=== PATIENT | female | born 1965 | race Caucasian/White ===

== ENCOUNTER 2022-02-23 10:42 | Inpatient (IN) ==
--- NOTE | 2022-01-28 08:56 | PAT Medication Instructions ---
Medication Instructions Date of Service January 28, 2022 Home Medications Medication Instructions Recorded cyclobenzaprine 10 mg tablet 10 mg PO TID PRN muscle spasm #12 06/26/21 tabs albuterol sulfate 90 mcg/actuation aerosol inhaler 2 puff inhalation Q4 PRN alprazolam 1 mg tablet 1 mg PO BID anakinra 100 mg/0.67 mL subcutaneous syringe 100 mg subcut QAM aspirin 81 mg tablet,delayed release (Robb Low Dose Aspirin) 81 mg PO QAM cholecalciferol (vitamin D3) 50 mcg (2,000 unit) tablet (Vitamin D3) 1,000 unit PO QAM duloxetine 30 mg capsule,delayed release 30 mg PO QAM duloxetine 60 mg capsule,delayed release 60 mg PO QAM fexofenadine 180 mg tablet 180 mg PO DAILY PRN fluticasone 250 mcg-salmeterol 50 mcg/dose blistr powdr for inhalation (Advair Diskus) 1 inh inhalation BID PRN furosemide 20 mg tablet 20 mg PO QAM ipratropium 0.5 mg-albuterol 3 mg (2.5 mg base)/3 mL nebulization soln 3 ml inhalation QID PRN montelukast 10 mg tablet 10 mg PO QAM pantoprazole 40 mg tablet,delayed release 40 mg PO QAM tramadol 50 mg tablet 50 mg PO BID PRN calcium 600 mg capsule 600 mg PO BID metoprolol tartrate 25 mg tablet 25 mg PO BID multivitamin 1 cap PO BID risperidone 1 mg tablet (Risperdal) 1 mg PO HS cyclobenzaprine 10 mg tablet 10 mg PO TID PRN oxycodone-acetaminophen 5 mg-325 mg tablet (Percocet) 1 tab PO QID PRN ASK your prescriber and surgeon anakinra 100 mg/0.67 mL subcutaneous syringe 100 mg subcut QAM aspirin 81 mg tablet,delayed release (Robb Low Dose Aspirin) 81 mg PO QAM risperidone 1 mg tablet (Risperdal) 1 mg PO HS DO NOT take the morning of surgery cholecalciferol (vitamin D3) 50 mcg (2,000 unit) tablet (Vitamin D3) 1,000 unit PO QAM fexofenadine 180 mg tablet 180 mg PO DAILY PRN furosemide 20 mg tablet 20 mg PO QAM montelukast 10 mg tablet 10 mg PO QAM calcium 600 mg capsule 600 mg PO BID multivitamin 1 cap PO BID cyclobenzaprine 10 mg tablet 10 mg PO TID PRN Take morning of surgery With a small sip of water, OTHERWISE NOTHING TO EAT OR DRINK AFTER MIDNIGHT: albuterol sulfate 90 mcg/actuation aerosol inhaler 2 puff inhalation Q4 PRN(use if needed; please bring with you to hospital day of surgery if possible) alprazolam 1 mg tablet 1 mg PO BID duloxetine 30 mg capsule,delayed release 30 mg PO QAM duloxetine 60 mg capsule,delayed release 60 mg PO QAM fluticasone 250 mcg-salmeterol 50 mcg/dose blistr powdr for inhalation (Advair Diskus) 1 inh inhalation BID PRN(if needed) ipratropium 0.5 mg-albuterol 3 mg (2.5 mg base)/3 mL nebulization soln 3 ml inhalation QID PRN(if needed) pantoprazole 40 mg tablet,delayed release 40 mg PO QAM tramadol 50 mg tablet 50 mg PO BID PRN(if needed) metoprolol tartrate 25 mg tablet 25 mg PO BID oxycodone-acetaminophen 5 mg-325 mg tablet (Percocet) 1 tab PO QID PRN(if needed) Take evening before surgery albuterol sulfate 90 mcg/actuation aerosol inhaler 2 puff inhalation Q4 PRN(if needed) alprazolam 1 mg tablet 1 mg PO BID fluticasone 250 mcg-salmeterol 50 mcg/dose blistr powdr for inhalation (Advair Diskus) 1 inh inhalation BID PRN(if needed) ipratropium 0.5 mg-albuterol 3 mg (2.5 mg base)/3 mL nebulization soln 3 ml inhalation QID PRN(if needed) tramadol 50 mg tablet 50 mg PO BID PRN(if needed) calcium 600 mg capsule 600 mg PO BID metoprolol tartrate 25 mg tablet 25 mg PO BID multivitamin 1 cap PO BID cyclobenzaprine 10 mg tablet 10 mg PO TID PRN(if needed) oxycodone-acetaminophen 5 mg-325 mg tablet (Percocet) 1 tab PO QID PRN(if needed) Other Notes If you have any questions please call us at [phone] or [phone] or [phone] or [phone]
--- NOTE | 2022-02-03 09:49 | Anesthesiology Consultation ---
Date of Service February 03, 2022 Assessment & Plan (1) Encounter for pre-operative examination: - COVID screening: Per assessment on 02/03: No known COVID-19 positive contacts or current COVID-19 related symptoms. Travel screen- returned from [place] 01/14 (via car). Patient vaccinated. At surgeon discretion if preop Covid testing being done. - Check BSG AM DOS - Cardiology office visit (11/11/21): "..with regards to proposed spine surgery plan 3 months for now. She denies any signs or symptoms of angina, unstable arrhythmia, or congestive heart failure.. Nonischemic stress test in 2015, and tolerated Kandace-en-Y gastric bypass surgery performed 2020.. I am going to have her return for an EKG January.. [if] EKG reveals stable findings, anticipate proceeding to surgery without further cardiac testing.. estimated low risk of perioperative cardiac complication." EKG performed 01/06/22 was unremarkable. - Patient acceptable risk for surgery pending surgeon-ordered PCP preop evaluation (S, scheduled 02/11). Chart Review Chart Review: Patient seen in Pre Admission Testing Teaching & Discussion Pre-Anesthesia Teaching/Discussion Notes: Instructed NPO after midnight before surgery,except medications with 15 cc of water. Medication instructions provided according to the PAT guidelines. History Surgery Operation Date: 02/23/22 07:45 Proposed Procedures p L2-L3 Decompression and Fusion, L3-L5 Hardware Removal, Spinal Cord Monitoring - Sunny Salcedo, Height/Weight Height: 5 ft 6 in Weight: 129.8 kg Allergies Allergy/AdvReac Type Severity Reaction Status Date / Time adalimumab Allergy Unknown generalized Verified 01/28/22 07:59 swelling ketorolac Allergy Unknown Hives Verified 01/28/22 07:59 latex Allergy Unknown RASH Verified 01/28/22 07:59 nitrofurantoin Allergy Unknown Hives Verified 01/28/22 07:59 pregabalin Allergy Unknown mouth Verified 01/28/22 07:59 swelling/hives triprolidine Allergy Unknown Tachycardia Verified 01/28/22 07:59 Medications Home Medications Medication Instructions Recorded Confirmed Last Taken albuterol sulfate 90 mcg/actuation 2 puff inhalation Q4 PRN Shortness 04/18/19 01/28/22 04/02/21 aerosol inhaler Of Breath alprazolam 1 mg tablet 1 mg PO BID 04/18/19 01/28/22 04/09/21 06:00 anakinra 100 mg/0.67 mL 100 mg subcut QAM 04/18/19 01/28/22 04/08/21 09:00 subcutaneous syringe aspirin 81 mg tablet,delayed 81 mg PO QAM 04/18/19 01/28/22 04/08/21 09:00 release (Robb Low Dose Aspirin) cholecalciferol (vitamin D3) 50 1,000 unit PO QAM 04/18/19 01/28/22 04/08/21 09:00 mcg (2,000 unit) tablet (Vitamin D3) duloxetine 30 mg capsule,delayed 30 mg PO QAM 04/18/19 01/28/22 04/09/21 06:00 release duloxetine 60 mg capsule,delayed 60 mg PO QAM 04/18/19 01/28/22 04/09/21 06:00 release fexofenadine 180 mg tablet 180 mg PO DAILY PRN Allergy 04/18/19 01/28/22 04/08/21 08:00 Symptoms fluticasone 250 mcg-salmeterol 50 1 inh inhalation BID PRN upper 04/18/19 01/28/22 04/02/21 mcg/dose blistr powdr for respiratory infection inhalation (Advair Diskus) furosemide 20 mg tablet 20 mg PO QAM 04/18/19 01/28/22 04/08/21 08:00 ipratropium 0.5 mg-albuterol 3 mg 3 ml inhalation QID PRN Shortness 04/18/19 01/28/22 Unknown (2.5 mg base)/3 mL nebulization Of Breath soln montelukast 10 mg tablet 10 mg PO QAM 04/18/19 01/28/22 04/09/21 06:00 pantoprazole 40 mg tablet,delayed 40 mg PO QAM 04/18/19 01/28/22 04/09/21 06:00 release tramadol 50 mg tablet 50 mg PO BID PRN Pain 04/18/19 01/28/22 04/02/21 calcium 600 mg capsule 600 mg PO BID 04/03/21 01/28/22 04/08/21 20:00 metoprolol tartrate 25 mg tablet 25 mg PO BID 04/03/21 01/28/22 04/09/21 06:00 multivitamin 1 cap PO BID 04/03/21 01/28/22 04/09/21 06:00 risperidone 1 mg tablet (Risperdal) 1 mg PO HS 04/03/21 01/28/22 04/08/21 20:00 cyclobenzaprine 10 mg tablet 10 mg PO TID PRN muscle spasm #12 06/26/21 01/28/22 Unknown tabs oxycodone-acetaminophen 5 mg-325 1 tab PO QID PRN Pain 01/28/22 01/28/22 Unknown mg tablet (Percocet) Past Medical History Medical History Anxiety Asthma Bipolar disorder Chronic back pain Chronic sinusitis Degenerative disc disease Depression Diabetes mellitus, type 2 Diet controlled since gastric bypass Environmental and seasonal allergies Fibromyalgia GERD (gastroesophageal reflux disease) Hepatitis A Hx 1982 History of COVID-19 05/2021- symptoms resolved Hyperlipidemia Hypertension Migraines Morbid obesity with BMI of 60.0-69.9, adult MTHFR gene mutation Dx d/t family hx- no personal issues Non-alcoholic fatty liver disease Osteoarthritis Osteoporosis Panic disorder PVC's (premature ventricular contractions) Follows with Dr. Meredith Rheumatoid arthritis Schnitzler syndrome SIADH (syndrome of inappropriate ADH production) Sleep apnea CPAP (compliant) Spinal stenosis TMJ (temporomandibular joint disorder) Hx locking, no recent issues Exercise / Class Metabolic Activity III < 4 Walking/Shop/Light housework Past Family History Family History Father Family history of diabetes mellitus Other No family history of adverse response to anesthesia Past Surgical History Surgical History History of appendectomy History of carpal tunnel release of both wrists History of section x2 History of cholecystectomy History of colonoscopy with polypectomy History of dilatation and curettage x3 History of esophagogastroduodenoscopy (EGD) History of gastric bypass july 2020 History of lumbar spinal fusion x2--L4-5, S1 History of mandibular surgery History of sinus surgery History of tonsillectomy and adenoidectomy History of total abdominal hysterectomy and bilateral salpingo-oophorectomy History of wisdom tooth extraction Nausea and vomiting after administration of anesthetic agent with general anestheisa Status post trigger finger release right thumb Past Anesthesia History No Hx of Anesthesia Complications (except PONV) and No Family Hx of Anesthesia Complications History of PONV History of PONV (Improvement with reglan use) and Hx of Motion Sickness Social History Smoking Status: Former smoker tobacco type: cigarettes Do You Dip or Chew Tobacco: No Smoking End Date: Quit 2003 Hx Alcohol Use: No Alcohol type: wine alcohol intake frequency: holidays/special occasions only Hx Substance Use: No substance use type: does not use Review of Systems Occasional palpitations. Patient denies chest pain, shortness of breath, fever, chills, cough, wheezing. Physical Exam Vital Signs VITALS BP 112/65 P 55 TEMP 99.1 SP02 97%RA RESP 18 PHYSICAL Full cervical extension range of motion. Full TMJ range of motion. TMD 2.5 finger breaths Mallampati Score 1 Dentition: intact, several crowns Lungs: clear throughout to auscultation Cardiac: regular rate and rhythm, no murmurs noted Spine: normal Carotid arteries: negative bruit Extremities: no edema Lab Results Anesthesia Preop Results Results Anesthesia Widget: WBC 5.85 K/ul (4.8-10.8) 02/03/22 Hgb 14.2 g/dl (12.0-16.0) 02/03/22 Hct 43.4 % (34.1-44.9) 02/03/22 Plt 224 K/uL (130-400) 02/03/22 Na 139 mmol/L (136-145) 02/03/22 K 4.9 mmol/L (3.5-5.1) 02/03/22 Cl 103 mmol/L (98-107) 02/03/22 CO2 31 mmol/L (21-32) 02/03/22 BUN 21 mg/dl (6-23) 02/03/22 Creat 0.94 mg/dl (0.6-1.2) 02/03/22 Glucose Level 130 mg/dl (70-99(Fasting)) H 02/03/22 PT 10.7 Seconds (9.0-12.0) 02/03/22 PTT 25.7 Seconds (21.0-31.0) 02/03/22 INR 1.0 (0.9-1.1) 02/03/22 Urine Color Yellow 02/03/22 Urine Appearance Clear (Clear) 02/03/22 Urine pH 5.0 (4.5-7.5) 02/03/22 Urine Specific [place] 1.007 (1.000-1.030) 02/03/22 Urine Protein Negative (Negative) 02/03/22 Urine Glucose (UA) Negative (Negative) 02/03/22 Urine Ketones Negative (Negative) 02/03/22 Urine Blood Negative (Negative) 02/03/22 Urine Nitrite Negative (Negative) 02/03/22 Urine Bilirubin Negative (Negative) 02/03/22 Urine Urobilinogen Negative (Negative) 02/03/22 Urine Leukocyte Esterase Negative (Negative) 02/03/22 Blood Type A Positive 02/03/22 Antibody Screen NEGATIVE 02/03/22 Testing Electrocardiogram Date: 01/06/22 SB with PACs at 49bpm. Otherwise normal ECG. Chest X-Ray Date: 02/03/22 FINDINGS: PA and lateral chest radiographs are compared to study dated 03/20/2016. The cardiomediastinal silhouette is top normal for projection. The lungs appear hyperinflated. No airspace consolidation or pleural effusion is identified. There is no pneumothorax. The bony thorax appears intact. Degenerative change is seen throughout the thoracic spine. IMPRESSION: No active disease in the chest. Stress Test Date: 08/15/15 Type: DSE Nonischemic dobutamine stress echo. The stress ECG response was normal. EF 60 to 65%. Grade 2 diastolic dysfunction. No significant valvular disease. Mild concentric LVH. Mild LAD. 88% MPHR. COVID-19 Risk Screen Screening Information COVID-19 Screen Date: 02/03/22 Exposure 21 Days Family/Household +COVID Last 21 Days: No Exposure 10 Days Any COVID Exposure Last 10 Days: No Symptoms Last 10 Days Experienced COVID Sx Last 10 Days: No + COVID 0-90 Days COVID + in Last 0-90 Days: No
[~2022-02-23 10:42] MED LIST: ACETAMINOPHEN 500 MG TAB PO SCH; DEXAMETHASONE SOD INJ 4 MG/ML VIAL ONE; LIDOCAINE 2% MPF LOCAL 5 ML VIAL INFIL ONE; LR 15ML/HR IV SCH; MIDAZOLAM HCL 1 MG/ML 2ML VIAL ONE; ONDANSETRON INJ 2 MG/ML 2 ML VIAL ONE; PROPOFOL IV EMULSION 10 MG/ML 20 ML VIAL IV ONE; ROCURONIUM BROMIDE 10 MG/ML 5 ML VIAL IV ONE; fentaNYL citrate 100 MCG/2 ML VIAL ONE
[2022-02-23] MEDS ORDERED: ONDANSETRON INJ 2 MG/ML 2 ML VIAL IV PRN ×2 (11:25→17:05)
[2022-02-23] MEDS ORDERED: HYDROmorphone INJ 1 MG/ML SYRINGE IV PRN ×2 (11:25→17:05)
[2022-02-23] MEDS ORDERED: ePHEDrine sulfate 50 MG/ML AMP IV PRN (11:25)
[2022-02-23] MEDS ORDERED: fentaNYL citrate 100 MCG/2 ML VIAL IV PRN (11:25)
[2022-02-23] MEDS ORDERED: ATROPINE SULFATE 0.1 MG/ML 10ML SYR IV PRN (11:25)
[2022-02-23] MEDS ORDERED: PROMETHAZINE HCL 6.25 MG in SODIUM CHLORIDE 0.9% 50 ML IV PRN (11:25)
[2022-02-23] MEDS ORDERED: SCOPOLAMINE 1 MG TDSY TD ONE (11:29)
--- NOTE | 2022-02-23 11:37 | History & Physical Bridge Note ---
Date of Service February 23, 2022 History & Physical Bridge Note I have examined the patient, reviewed the History & Physical and in the interval since the performance of the History & Physical I have noted the following changes of clinical significance: no changes noted
--- NOTE | 2022-02-23 11:38 | History & Physical Report ---
Date of Service February 23, 2022 Assessment & Plan (1) Spinal stenosis, lumbar: Plan: L2-L3 decompression and fusion, L3-L5 hardware removal History of Present Illness Chief Complaint: Back and bilateral leg pain Primary Care Provider: Aubrey Mcmullen MD This a 48-year-old female known to me the presents with chronic persistent back and bilateral leg pain. Failing since course of nonoperative care is here for surgical intervention. Allergies Allergy/AdvReac Type Severity Reaction Status Date / Time adalimumab Allergy Unknown generalized Verified 02/23/22 10:55 swelling ketorolac Allergy Unknown Hives Verified 02/23/22 10:55 latex Allergy Unknown RASH Verified 02/23/22 10:55 nitrofurantoin Allergy Unknown Hives Verified 02/23/22 10:55 pregabalin Allergy Unknown mouth Verified 02/23/22 10:55 swelling/hives triprolidine Allergy Unknown Tachycardia Verified 02/23/22 10:55 Home Medications Medication Instructions Recorded Confirmed Type albuterol sulfate 90 mcg/actuation 2 puff inhalation Q4 PRN Shortness 04/18/19 02/23/22 History aerosol inhaler Of Breath alprazolam 1 mg tablet 1 mg PO BID 04/18/19 02/23/22 History anakinra 100 mg/0.67 mL 100 mg subcut QAM 04/18/19 02/23/22 History subcutaneous syringe aspirin 81 mg tablet,delayed 81 mg PO QAM 04/18/19 02/23/22 History release (Robb Low Dose Aspirin) cholecalciferol (vitamin D3) 50 1,000 unit PO QAM 04/18/19 02/23/22 History mcg (2,000 unit) tablet (Vitamin D3) duloxetine 30 mg capsule,delayed 30 mg PO QAM 04/18/19 02/23/22 History release duloxetine 60 mg capsule,delayed 60 mg PO QAM 04/18/19 02/23/22 History release fexofenadine 180 mg tablet 180 mg PO DAILY PRN Allergy 04/18/19 02/23/22 History Symptoms fluticasone 250 mcg-salmeterol 50 1 inh inhalation BID PRN upper 04/18/19 02/23/22 History mcg/dose blistr powdr for respiratory infection inhalation (Advair Diskus) furosemide 20 mg tablet 20 mg PO QAM 04/18/19 02/23/22 History ipratropium 0.5 mg-albuterol 3 mg 3 ml inhalation QID PRN Shortness 04/18/19 02/23/22 History (2.5 mg base)/3 mL nebulization Of Breath soln montelukast 10 mg tablet 10 mg PO QAM 04/18/19 02/23/22 History pantoprazole 40 mg tablet,delayed 40 mg PO QAM 04/18/19 02/23/22 History release tramadol 50 mg tablet 50 mg PO BID PRN Pain 04/18/19 02/23/22 History calcium 600 mg capsule 600 mg PO BID 04/03/21 02/23/22 History metoprolol tartrate 25 mg tablet 25 mg PO BID 04/03/21 02/23/22 History multivitamin 1 cap PO BID 04/03/21 02/23/22 History risperidone 1 mg tablet (Risperdal) 1 mg PO HS 04/03/21 02/23/22 History cyclobenzaprine 10 mg tablet 10 mg PO TID PRN muscle spasm #12 06/26/21 02/23/22 Rx tabs oxycodone-acetaminophen 5 mg-325 1 tab PO QID PRN Pain 01/28/22 02/23/22 History mg tablet (Percocet) Past Med/Surg History Medical History Anxiety Asthma Bipolar disorder Chronic back pain Chronic sinusitis Degenerative disc disease Depression Diabetes mellitus, type 2 Diet controlled since gastric bypass Environmental and seasonal allergies Fibromyalgia GERD (gastroesophageal reflux disease) Hepatitis A Hx 1981 History of COVID-19 05/2021- symptoms resolved Hyperlipidemia Hypertension Migraines Morbid obesity with BMI of 60.0-69.9, adult MTHFR gene mutation Dx d/t family hx- no personal issues Non-alcoholic fatty liver disease Osteoarthritis Osteoporosis Panic disorder PVC's (premature ventricular contractions) Follows with Dr. Meredith Rheumatoid arthritis Schnitzler syndrome SIADH (syndrome of inappropriate ADH production) Sleep apnea CPAP (compliant) Spinal stenosis TMJ (temporomandibular joint disorder) Hx locking, no recent issues Surgical History History of appendectomy History of carpal tunnel release of both wrists History of section x2 History of cholecystectomy History of colonoscopy with polypectomy History of dilatation and curettage x3 History of esophagogastroduodenoscopy (EGD) History of gastric bypass july 2020 History of lumbar spinal fusion x2--L4-5, S1 History of mandibular surgery History of sinus surgery History of tonsillectomy and adenoidectomy History of total abdominal hysterectomy and bilateral salpingo-oophorectomy History of wisdom tooth extraction Nausea and vomiting after administration of anesthetic agent with general anestheisa Status post trigger finger release right thumb Family History Father Family history of diabetes mellitus Other No family history of adverse response to anesthesia Social History Smoking Status: Former smoker Smoking End Date: Quit 2003; Second Hand Exposure: No; Do You Dip or Chew Tobacco: No; Tobacco Cessation Education Requested by Patient: No Hx Alcohol Use: No Hx Substance Use: No Preferred Language: Slovenian Communication Ability: Effective Hazardous Material Specialist Required: No Beliefs That Will Affect Care: None and Orthodox Orthodox Beliefs: HINDU Current Living Situation: Spouse Current Living Situation Comment: Lives with and daughter Other Information That Helps Us Care for You: No Feels Safe at Home: Yes Safety Concerns: Feels Safe At This Time Assistive Devices: Cane, CPAP, Glasses and Nebulizer Assistive Devices Comment: USES CANE OCCASIONALLY Physical Exam Physical Exam: Patient is alert and oriented Heart regular rhythm Lungs clear
[2022-02-23] MEDS ORDERED: BUPIVACAINE/EPINEPHRINE 0.25% 1:200,000 30 ML VIAL ONE (11:58)
[2022-02-23] MEDS ORDERED: ceFAZolin 330 MG/ML 1 GM VIAL ONE (11:59)
[2022-02-23] MEDS ORDERED: SUGAMMADEX SODIUM 200 MG/2 ML VIAL IV ONE (12:26)
[2022-02-23] MEDS ORDERED: FLOSEAL HEMOSTATIC MATRIX 10ML TOP ONE (13:01)
[2022-02-23] MEDS ORDERED: ONDANSETRON INJ 2 MG/ML 2 ML VIAL ONE (13:52)
[2022-02-23] MEDS ORDERED: ROCURONIUM BROMIDE 10 MG/ML 5 ML VIAL IV ONE ×3 (13:54)
--- NOTE | 2022-02-23 14:03 | Operative Report ---
Post Operative Report Pre & Post Diagnosis Operation Date: 02/23/22 12:35 Pre-Op Diagnosis: Lumbar spinal stenosis with neurogenic claudication Post-Op Diagnosis: Same I identified the patient and participated in the time-out.: Yes Procedure Operation Date: 02/23/22 12:35 Actual Procedures #1 removal of instrumentation L3-L4-L5. #2 exploration of fusion L3 L5. #3 lumbar decompression with bilateral medial facetectomies and foraminotomies L1- L2 L2-L3. #4 posterior spinal fusion L2-L3. #5 placement posterior instrumentation L2-L3. #6 interbody fusion L2-L3. #7 placement of Spira 12 x 26 mm cage at L2-L3. #8 placement of locally harvested morselized autograft in the posterior gutters. Benign placement of I factor combined with V toss in the interbody space and posterior lateral gutters. Surgeon Sunny Salcedo, DO Hosiery [employer] Marialuisa Campos Estimated Blood Loss 300 Findings See Below The patient is 5 foot 6 weighing over 129 kg with a BMI in excess of 46. The patient's body was did contribute to significant technical difficulty required deeper retractors longer instruments in order to perform her procedure. This had at least 50% increased operative time.. Specimens None Indications This is a 56-year-old female who presents above-mentioned diagnosis after failed extensive course of nonoperative care is here for surgical invention. Description of Procedure Patient was met with identified informed consent obtained. Patient was then taken to the operative suite underwent a patient placed in a prone position on a Emerson table top Erlin frame. Operative prominences well-padded eyes inspected to ensure no external pressure placed upon the. This point the lumbar spine was prepped and draped in normal sterile fashion. Sharp dissection with the assistance of bradycardia was performed down to and exposing the lamina and transverse processes of L2 and instrumentation at L3-L4-L5 bilaterally. Then proceeded move the hardware bilaterally explore the fusion mass noting it to be mature and intact. Then performed a complete laminectomy of L2 partial laminectomy L1 including bilateral medial facetectomies and foraminotomies addressing severe spinal stenosis. Pedicle screws were then placed in L2-L3 bilaterally with assistance of fluoroscopy the process rita placed. By way of a transfemoral approach on the right a complete discectomy of L to L3 was performed endplates curetted to subcortical bleeding bone and a 12 x 26 mm spiral cage with I factor tapped in position. The rods were then locked into final position bilaterally. The transverse processes of L2-L3 burred to subcortically bone. I factor model V toss and locally harvested morselized autograft placed in the posterior gutters. 15 round MAXIMILIANO inserted. The incision was then closed with 1 Vicryl the fascia 2-0 Vicryl subcutaneously and 4 Monocryl for final closure. Steri-Strip Steri-Strip placed. Patient waken taken to PACU in stable condition. Please note spinal cord monitoring was utilized at the procedure no changes noted. Lastly Marialuisa Campos was present at the entire surgery and while the patient positioning complex portions of the surgery and final skin closure. I attest to the content of the Intraoperative Record and any orders documented therein. Any exceptions are noted below.
[2022-02-23] MEDS ORDERED: SODIUM CHLORIDE 0.9% 50 ML BAG ONE (14:40)
[2022-02-23] MEDS ORDERED: PROMETHAZINE HCL INJ 25 MG/ML 1 ML VIAL ONE (14:41)
--- NOTE | 2022-02-23 14:54 | Fluoroscopy Report ---
INTRAOPERATIVE RADIOGRAPHS CLINICAL HISTORY: Lumbar spinal fusion surgery. Fluoroscopy time: 20 seconds. FINDINGS: 2 spot fluoroscopic views of the lumbar spine are presented. There is evidence of discectom y at L2-L3, L3-L4, and L4-L5. Interpedicular screws are present at L2-L3. The orthopedic hardware mariaelena ears intact. IMPRESSION: Intraoperative images from lumbar spinal fusion surgery as above. Electronically signed by: Deepak Conde M.D. 02/23/2022 2:53 PM
--- NOTE | 2022-02-23 14:58 | Anesthesiology Progress Note ---
Date of Service February 23, 2022 Anesthesia Post Procedure Vital Signs Vital Signs: Temp Pulse Resp BP Pulse Ox O2 Del Method 02/23/22 11:21 37 C 50 L 20 133/46 L 96 Room Air 02/23/22 11:21 Room Air Pain Intensity Right Thigh: Pain Intensity: 4 Transfer of Care Handoff Completed per policy Notes Mental Status: alert / awake / arousable and participated in evaluation Patient Amnestic to Procedure: Yes Nausea / Vomiting: adequately controlled Pain: adequately controlled Airway Patency, RR, SpO2: stable & adequate BP & HR: stable & adequate Hydration State: stable & adequate Anesthetic Complications: no major complications apparent and Pt Satisfied with anesthetic care
[2022-02-23] MEDS ORDERED: FEXOFENADINE HCL 180 MG TAB PO PRN (17:05)
[2022-02-23] MEDS ORDERED: bisacodyL 10 MG SUPP PR PRN (17:05)
[2022-02-23] MEDS ORDERED: METOCLOPRAMIDE HCL INJ 5 MG/ML 2 ML VIAL IV PRN (17:05)
[2022-02-23] MEDS ORDERED: LORazepam 0.5 MG TAB PO PRN (17:05)
[2022-02-23] MEDS ORDERED: hydrOXYzine HCl 25 MG TAB PO PRN (17:05)
[2022-02-23] MEDS ORDERED: ACETAMINOPHEN 500 MG TAB PO PRN (17:05)
[2022-02-23] MEDS ORDERED: DO NOT ADMINISTER FLU VACCINE PRN (17:05)
[2022-02-23] MEDS ORDERED: ACETAMINOPHEN 1,000 MG/100 ML VIAL IV PRN (17:05)
[2022-02-23] MEDS ORDERED: ALBUT/IPRATROP 3MG/0.5MG NEB 3 ML VIAL INH PRN (17:05)
[2022-02-23] MEDS ORDERED: ONDANSETRON 4 MG OD TAB PO PRN (17:05)
[2022-02-23] MEDS ORDERED: diphenhydrAMINE Capsule 25 MG CAP PO PRN (17:05)
[2022-02-23] MEDS ORDERED: LORazepam 0.5 MG in SYRINGE 0 ML IV PRN (17:05)
[2022-02-23] MEDS ORDERED: DO NOT ADMINISTER PNEUMOCOCCAL VACCINE PRN (17:05)
[2022-02-23] MEDS ORDERED: traMADol HCL 50 MG TABLET PO PRN (17:05)
[2022-02-23] MEDS ORDERED: HYDROmorphone INJ 0.5 MG/0.5 ML SYR IV PRN (17:05)
[2022-02-23] MEDS ORDERED: FAMOTIDINE 20 MG TAB PO PRN (17:05)
[2022-02-23] MEDS ORDERED: NALOXONE HCL 0.4 MG/1 ML VIAL/CARP IV PRN (17:05)
[2022-02-23] MEDS ORDERED: CYCLOBENZAPRINE HCL 10 MG TAB PO PRN (17:05)
[2022-02-23] MEDS ORDERED: PROMETHAZINE HCL 12.5 MG in SODIUM CHLORIDE 0.9% 50 ML IV PRN (17:05)
[2022-02-23] MEDS ORDERED: FLUTICASONE/SALMETEROL 250/50 (ADVAIR) 14 PUFF/1 INHALER INH PRN (17:05)
[2022-02-23] MEDS ORDERED: ALUMINUM/MAGNESIUM SUSP 30 ML UDC PO PRN (17:05)
[2022-02-23] MEDS ORDERED: ALBUTEROL HFA 8 GM INHALER INH PRN (17:05)
[2022-02-23] MEDS ORDERED: SOD PHOSPHATE/SOD BIPHOSPHATE ENEMA 132 ML BTL PR PRN (17:05)
[2022-02-23] MEDS: SODIUM CHLORIDE 0.9% 1000ML 1,000 ML IV SCH (17:29)
--- NOTE | 2022-02-23 18:39 | Hospitalist Consultation ---
Date of Consultation February 23, 2022 Assessment & Plan (1) Spinal stenosis, lumbar: - Pain management, bowel regimen and DVT ppx per the primary team - PT/OT consults, pt is planning on outpatient therapy - Follow am CBC to monitor for acute blood loss, last hgb was 14.2 on 02/03 - Will hold lasix and aspirin for at least 24 hours, can resume per day team (2) Morbid obesity with BMI of 45.0-49.9, adult: - BMI 46.2 - S/p gastric bypass surgery in July 2020, has lost 112 lbs. Prior to surgery weighed 399 lbs, and goal is to weigh 250 lbs. Diet and exercise encouraged and pt is hopeful that surgery will improve her pain control to promote ability to exercise. 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 Will order non-formulary medication and plans to bring this in from home, needs refridgerated (6) Moderate obstructive sleep apnea: - cpap HS, pt brought own mask from home DVT ppx: - teds, scds, holding aspirin for now, resume per day team CODE: Full code Dispo: From home, likely to remain in the hospital x 1-2 days Supervising Physician Co-Signing Physician Notes delayed entry date of service noted above Attending Addendum: care coordinated with RACHAEL Nichols please refer to her notes for full details, I agree with her notes patient seen and examined, records reviewed by myself as well on exam, patient seen sitting up in bed, comfortable, not in distress Has some mild discomfort over surgical site, but otherwise feels okay no chest pain, dyspnea, palpitations, dizziness From nausea or abdominal pain no other symptoms VS noted and reviewed oriented x 3, not in distress, speaks in sentences with no effort nor accessory muscle use normal rate, regular rhythm, no murmurs clear breath sounds bilaterally non distended, soft, nontender no bipedal edema, erythema, warmth no neuro deficits ASSESSMENT AND PLAN Status post lumbar spine surgery Stable overall Hold Lasix to prevent dehydration, hypotension Hold aspirin until okay with orthopedic surgery service Resume other usual medications other diagnoses and plan of care as per RACHAEL Nichols's notes Andrae Valdivia MD History of Present Illness Reason for Consultation: Medical management Requesting Physician: Dr. Salcedo Attending Physician: Sunny Salcedo, DO History of Present Illness This is a 56-year-old female with PMHx of asthma, morbid obesity with BMI of 46.2 status post 100 pounds of weight loss s/p bariatric surgery, previous history of DM type II with last A1c of 5, moderate JULES, MTHFR mutation, Schnitzler's syndrome, rheumatoid arthritis, GERD, osteoporosis and other medical issues listed below. Pt presented to hospital with spinal stenosis of the lumbar region for elective lumbar decompression fusion, L3-L5 hardware removal by Dr. Salcedo. Patient reports she is doing well, she has chronic right-sided leg paresthesias from many years ago from chronic morbid obesity. It has improved since losing over 112 pounds since July 2020 when she had gastric bypass surgery. Patient is no longer on medications for any diabetes as her A1c is 5. She had been taking Percocet prior to the surgery to help with pain control, patient reports she has 5 tablets left from her PCP. She anticipates doing PT/OT after discharge. 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 Allergies Allergy/AdvReac Type Severity Reaction Status Date / Time adalimumab Allergy Unknown generalized Verified 02/23/22 10:55 swelling ketorolac Allergy Unknown Hives Verified 02/23/22 10:55 latex Allergy Unknown RASH Verified 02/23/22 10:55 nitrofurantoin Allergy Unknown Hives Verified 02/23/22 10:55 pregabalin Allergy Unknown mouth Verified 02/23/22 10:55 swelling/hives triprolidine Allergy Unknown Tachycardia Verified 02/23/22 10:55 Home Medications Medication Instructions Recorded Confirmed Type albuterol sulfate 90 mcg/actuation 2 puff inhalation Q4 PRN Shortness 04/18/19 02/23/22 History aerosol inhaler Of Breath alprazolam 1 mg tablet 1 mg PO BID 04/18/19 02/23/22 History anakinra 100 mg/0.67 mL 100 mg subcut QAM 04/18/19 02/23/22 History subcutaneous syringe aspirin 81 mg tablet,delayed 81 mg PO QAM 04/18/19 02/23/22 History release (Robb Low Dose Aspirin) cholecalciferol (vitamin D3) 50 1,000 unit PO QAM 04/18/19 02/23/22 History mcg (2,000 unit) tablet (Vitamin D3) duloxetine 30 mg capsule,delayed 30 mg PO QAM 04/18/19 02/23/22 History release duloxetine 60 mg capsule,delayed 60 mg PO QAM 04/18/19 02/23/22 History release fexofenadine 180 mg tablet 180 mg PO DAILY PRN Allergy 04/18/19 02/23/22 History Symptoms fluticasone 250 mcg-salmeterol 50 1 inh inhalation BID PRN upper 04/18/19 02/23/22 History mcg/dose blistr powdr for respiratory infection inhalation (Advair Diskus) furosemide 20 mg tablet 20 mg PO QAM 04/18/19 02/23/22 History ipratropium 0.5 mg-albuterol 3 mg 3 ml inhalation QID PRN Shortness 04/18/19 02/23/22 History (2.5 mg base)/3 mL nebulization Of Breath soln montelukast 10 mg tablet 10 mg PO QAM 04/18/19 02/23/22 History pantoprazole 40 mg tablet,delayed 40 mg PO QAM 04/18/19 02/23/22 History release calcium 600 mg capsule 600 mg PO BID 04/03/21 02/23/22 History metoprolol tartrate 25 mg tablet 25 mg PO BID 04/03/21 02/23/22 History multivitamin 1 cap PO BID 04/03/21 02/23/22 History risperidone 1 mg tablet (Risperdal) 1 mg PO HS 04/03/21 02/23/22 History cyclobenzaprine 10 mg tablet 10 mg PO TID PRN muscle spasm #12 06/26/21 02/23/22 Rx tabs oxycodone-acetaminophen 5 mg-325 1 tab PO QID PRN Pain 01/28/22 02/23/22 History mg tablet (Percocet) oxycodone 5 mg tablet 5 mg PO Q6H PRN pain, severe #30 02/24/22 Rx tabs tramadol 50 mg tablet 50 mg PO Q6H PRN pain, moderate 02/24/22 Rx #30 tabs Patient History Medical History Anxiety Asthma Bipolar disorder Chronic back pain Chronic sinusitis Degenerative disc disease Depression Diabetes mellitus, type 2 Diet controlled since gastric bypass Environmental and seasonal allergies Fibromyalgia GERD (gastroesophageal reflux disease) Hepatitis A Hx 1982 History of COVID-19 05/2021- symptoms resolved Hyperlipidemia Hypertension Migraines Morbid obesity with BMI of 60.0-69.9, adult MTHFR gene mutation Dx d/t family hx- no personal issues Non-alcoholic fatty liver disease Osteoarthritis Osteoporosis Panic disorder PVC's (premature ventricular contractions) Follows with Dr. Meredith Rheumatoid arthritis Schnitzler syndrome SIADH (syndrome of inappropriate ADH production) Sleep apnea CPAP (compliant) Spinal stenosis TMJ (temporomandibular joint disorder) Hx locking, no recent issues Surgical History History of appendectomy History of carpal tunnel release of both wrists History of section x2 History of cholecystectomy History of colonoscopy with polypectomy History of dilatation and curettage x3 History of esophagogastroduodenoscopy (EGD) History of gastric bypass july 2020 History of lumbar spinal fusion x2--L4-5, S1 History of mandibular surgery History of sinus surgery History of tonsillectomy and adenoidectomy History of total abdominal hysterectomy and bilateral salpingo-oophorectomy History of wisdom tooth extraction Nausea and vomiting after administration of anesthetic agent with general anestheisa Status post trigger finger release right thumb Family History Father Family history of diabetes mellitus Other No family history of adverse response to anesthesia Social History Smoking Status: Former smoker Smoking End Date: Quit 2003; Second Hand Exposure: No; Do You Dip or Chew Tobacco: No; Tobacco Cessation Education Requested by Patient: No Hx Alcohol Use: No Hx Substance Use: No Preferred Language: Ethiopian Communication Ability: Effective Cart Pusher Required: No Beliefs That Will Affect Care: None and Taoist Taoist Beliefs: QUAKER Current Living Situation: Spouse Current Living Situation Comment: Lives with and daughter Other Information That Helps Us Care for You: No Feels Safe at Home: Yes Safety Concerns: Feels Safe At This Time Assistive Devices: None Assistive Devices Comment: USES CANE OCCASIONALLY Review of Systems Review of Systems: Constitutional: No fever, sweats or chills Eyes: No diplopia, no worsening or blurred vision ENT: normal hearing, no trouble swallowing Respiratory: No cough, sputum, dyspnea at rest or on exertion Cardiovascular: No chest pain, tightness or palpitations Abdomen: No pain, nausea, vomiting, diarrhea or constipation Musculoskeletal: No joint pain, calf pain, swelling Neurologic: No weakness, + chronic right sided lower extremity paresthesias, otherwise no numbness/tingling, or balance problems Psychiatric: No anxiety or depression Skin: No rash or itch Physical Exam Physical Exam: General: awake, alert, no apparent distress, morbidly obese with BMI 46.2 Head: Normocephalic, atraumatic ENT: PERRL, EOMI, no pharyngeal exudate, mucous membranes moist Chest: Clear to auscultation, on room air, no adventitious breath sounds Cardiac: Regular rate and rhythm, no murmur, no JVD, normal peripheral pulses, good capillary refill Abdominal: NABS x 4 quadrants, soft, nondistended, nontender to palpation, no rebound or guarding Back: MAXIMILIANO drain draining bloody serosanguineous fluid Extremities: Normal inspection, no peripheral edema or erythema, calfs nontender to palpation Psych: Normal mood and affect Neuro: AAO x 3, strength intact bilaterally and rated 5/5, no motor deficits, speech is clear, + chronic peripheral sensory deficits in the RLE with decreased sensation which is chronic. Results & Data Results & Data ([facility]) Vital Signs (Past 12 Hours) Vital Signs Temp Pulse Resp BP Pulse Ox O2 Del Method O2 Flow Rate 02/23/22 17:30 Room Air 02/23/22 15:20 36.7 C 79 15 127/73 96 Room Air 02/23/22 14:50 75 18 128/72 97 Oxymask 3 02/23/22 14:40 75 13 120/74 100 Oxymask 4 02/23/22 16:30 36.7 C 66 19 122/76 97 Oxymask 2 02/23/22 16:00 36.7 C 66 21 122/76 97 Room Air 02/23/22 15:30 36.7 C 74 22 115/70 93 Room Air 02/23/22 15:10 70 19 122/75 99 Oxymask 3 02/23/22 15:00 74 18 132/74 98 Oxymask 3 02/23/22 14:30 79 16 127/81 100 Oxymask 4 02/23/22 14:20 36.5 C 89 16 123/79 100 Oxymask 5 02/23/22 11:21 37 C 50 L 20 133/46 L 96 Room Air 02/23/22 11:21 Room Air
[2022-02-23] MEDS: CLINDAMYCIN/D5W 600 MG/50 ML BAG IV SCH (20:21)
[2022-02-23] MEDS ORDERED: NON-FORMULARY MEDICATION (Calcium 600 mg Capsule) PO SCH (21:00)
[2022-02-23] MEDS: DOCUSATE SODIUM/SENNA 50/8.6MG TAB PO SCH (21:07)
[2022-02-23] MEDS: risperiDONE 1 MG TABLET PO SCH (21:07)
[2022-02-23] MEDS: METOPROLOL TARTRATE 25 MG TAB PO SCH (21:08)
[2022-02-23] MEDS: MULTIVITAMIN TAB PO SCH (21:08)
[2022-02-23] MEDS: ALPRAZolam 0.5 MG TABLET PO SCH (21:09)
[2022-02-23] MEDS: ALLERGY Noted to ORDERED Medication SCH (23:02)
[2022-02-24] MEDS: oxyCODONE HCL IR 5 MG TAB (IMMEDIATE RELEASE) PO PRN ×5 (00:01→21:58)
[2022-02-24] MEDS: SODIUM CHLORIDE 0.9% 1000ML 1,000 ML IV SCH ×2 (00:02→06:19)
[2022-02-24] MEDS: CLINDAMYCIN/D5W 600 MG/50 ML BAG IV SCH (03:49)
[2022-02-24] MEDS: POLYETHYLENE (MIRALAX) 17 GM PACK PO SCH ×3 (05:40→16:52)
[2022-02-24] MEDS: ALLERGY Noted to ORDERED Medication SCH ×6 (07:15→16:41)
[2022-02-24] MEDS: DULoxetine HCL 60 MG CAP PO SCH (08:40)
[2022-02-24] MEDS: CHOLECALCIFEROL 1,000 UNITS 25 MCG TAB PO SCH (08:40)
[2022-02-24] MEDS: MONTELUKAST SODIUM 10 MG TABLET PO SCH (08:40)
[2022-02-24] MEDS: MULTIVITAMIN TAB PO SCH ×2 (08:40→20:58)
[2022-02-24] MEDS: METOPROLOL TARTRATE 25 MG TAB PO SCH ×2 (08:40→20:58)
[2022-02-24] MEDS: FLUTICASONE/VILANTEROL 200/25MCG 14 PUFFS/INHALER INH SCH (08:40)
[2022-02-24] MEDS: DULoxetine HCL 30 MG CAP PO SCH (08:40)
[2022-02-24] MEDS: PANTOprazole 40 MG TAB PO SCH (08:40)
[2022-02-24] MEDS: ALPRAZolam 0.5 MG TABLET PO SCH ×2 (08:47→20:58)
[2022-02-24] MEDS ORDERED: ANAKINRA SQ SCH (09:00)
[2022-02-24] MEDS ORDERED: ASPIRIN 81 MG ECTAB PO SCH (09:00)
[2022-02-24] MEDS ORDERED: FUROSEMIDE 20 MG TAB PO SCH (09:00)
[2022-02-24 09:01] LABS: Basophils # (auto) 0.04 K/uL (0-0.2); Basophils % (auto) 0.5 %; Eosinophils # (auto) 0.21 K/uL (0-0.50); Eosinophils % (auto) 2.8 %; Hematocrit (blood only) 35.8 % (34.1-44.9); Hemoglobin 11.8 g/dl (12.0-16.0); Immature Granulocytes # (auto) 0.03 K/uL (0.00-0.02); Immature Granulocytes % (auto) 0.4 %; Lymphocytes % (auto) 30.5 %; Mean Corpuscular Hemoglobin 30.1 pg (25.0-34.0); Mean Corpuscular Volume 91.3 fL (80.0-100.0); Monocytes # (auto) 0.86 K/uL (0.24-0.82); Monocytes % (auto) 11.4 %; Neutrophils # (auto) 4.11 K/uL (1.4-6.5); Neutrophils % (auto) 54.4 %; Platelet Count 181 K/uL (130-400); RDW Coefficient of Variation 12.5 % (11.5-14.5); RDW Standard Deviation 41.3 fL (36.4-46.3); Red Blood Count 3.92 M/uL (3.93-5.22); White Blood Count 7.55 K/ul (4.8-10.8)
[2022-02-24 09:33] LABS: BUN Creatinine Ratio 18.9 (10-20); Calcium 8.6 mg/dl (8.5-10.1); Creatinine Clr Calc Pharmacy 114.5 ml/min; Est GFR (African American) 103.5 ml/min; Est GFR (Non-African American) 89.3 ml/min; Potassium 4.1 mmol/L (3.5-5.1)
[2022-02-24] MEDS: ANAKINRA SC SCH (12:28)
[2022-02-24] MEDS: MAGNESIUM HYDROXIDE SUSP 30 ML UDC PO PRN (13:57)
--- NOTE | 2022-02-24 18:22 | Hospitalist Progress Note ---
Date of Service February 24, 2022 Assessment & Plan (1) Spinal stenosis, lumbar: Plan: (1) Spinal stenosis, lumbar: Status post lumbar spine surgery -Stable overall -Lasix on hold to prevent hypotension, dehydration Aspirin on hold till okay with surgery service -Hemoglobin 11.8 Monitor closely Transfuse if hemoglobin less than 7 (2) Morbid obesity with BMI of 45.0-49.9, adult: - BMI 46.2 - S/p gastric bypass surgery in July 2020 (3) DM type 2 (diabetes mellitus, type 2): -A1c 5.0 -Not on any medications -BSG 109 (4) Asthma, allergic: - Continue Advair inh, ipratropium-albuterol -Respiratory status stable (5) Schnitzler syndrome: -Continue anakinra 100 mg SQ daily for such. Will order non-formulary medication and plans to bring this in from home, needs refridgerated (6) Moderate obstructive sleep apnea: - cpap HS, pt brought own mask from home DVT ppx: - teds, scds, holding aspirin for now, resume per day team CODE: Full code Thank you for this consultation. We will follow the patient with you during their hospital stay. You can reach a [facility] via pager @ [phone]. Admission and Anticipated Discharge Date Admission Date: February 23, 2022 Subjective Follow-up for lumbar spine surgery, etc. Seen resting in bed, sitting up, not in distress, comfortable States that she is having increased level of pain on her surgical site today Denies weakness or numbness of lower extremity, but ambulating in the room okay so far No other symptoms Review of Systems Review of Systems: all noted and negative except for above Physical Exam Physical Exam: General- oriented x 3, not in distress, speaks in sentences with no effort or accessory muscle use Eyes- anicteric Neck- no JVD Lungs- clear breath sounds bilaterally, no crackles or wheezing Heart- normal rate, regular rhythm; no murmurs Abdomen- normal bowel sounds, nondistended, soft, nontender Extremities- no pretibial edema, no calf tenderness Back-dressing in place, no bleeding or discharge, MAXIMILIANO drain in place with moderate serosanguineous output Neuro- alert, oriented x 3; no gross focal neurologic deficits Skin- warm & dry Results & Data Results & Data ([facility]) Vital Signs (Past 12 Hours) Vital Signs Temp Pulse Resp BP BP Pulse Ox O2 Del Method 02/24/22 14:56 37 C 72 18 107/64 95 Room Air 02/24/22 11:44 36.9 C 78 18 103/62 95 Room Air 02/24/22 07:47 37 C 64 18 105/68 94 Room Air all noted and reviewed including below
[2022-02-24] MEDS ORDERED: LORazepam 0.5 mg IV INJ IV PRN (19:09)
[2022-02-24] MEDS: risperiDONE 1 MG TABLET PO SCH (20:58)
[2022-02-24] MEDS: DOCUSATE SODIUM/SENNA 50/8.6MG TAB PO SCH (20:58)
[2022-02-25] MEDS: ALLERGY Noted to ORDERED Medication SCH ×3 (00:26→16:11)
[2022-02-25] MEDS: POLYETHYLENE (MIRALAX) 17 GM PACK PO SCH ×4 (00:31→18:17)
[2022-02-25] MEDS: oxyCODONE HCL IR 5 MG TAB (IMMEDIATE RELEASE) PO PRN ×4 (05:54→22:42)
[2022-02-25] MEDS: ALPRAZolam 0.5 MG TABLET PO SCH ×2 (08:07→20:05)
[2022-02-25] MEDS: ANAKINRA SC SCH (08:08)
[2022-02-25] MEDS: DULoxetine HCL 60 MG CAP PO SCH (08:08)
[2022-02-25] MEDS: CHOLECALCIFEROL 1,000 UNITS 25 MCG TAB PO SCH (08:08)
[2022-02-25] MEDS: MULTIVITAMIN TAB PO SCH ×2 (08:08→20:06)
[2022-02-25] MEDS: DULoxetine HCL 30 MG CAP PO SCH (08:08)
[2022-02-25] MEDS: PANTOprazole 40 MG TAB PO SCH (08:08)
[2022-02-25] MEDS: MONTELUKAST SODIUM 10 MG TABLET PO SCH (08:08)
[2022-02-25] MEDS: FLUTICASONE/VILANTEROL 200/25MCG 14 PUFFS/INHALER INH SCH (08:08)
[2022-02-25] MEDS: METOPROLOL TARTRATE 25 MG TAB PO SCH ×2 (08:10→20:06)
--- NOTE | 2022-02-25 08:31 | Orthopedic Progress Note ---
Date of Service February 25, 2022 Assessment & Plan (1) Spinal stenosis, lumbar: Plan: Patient is postop day 2 status post hardware removal L3-5, decompression and fusion L2-3. We will continue physical therapy today. Continue pain control. DVT prophylaxis is in the form of teds and SCDs. Continue with aggressive bowel regimen. Maintain MAXIMILIANO drain. Anticipate discharge home tomorrow Admission and Anticipated Discharge Date Admission Date: February 23, 2022 Fela Knutson is postoperative day 2 status post hardware removal L3-5, decompression and fusion L2-3. She is doing well. Still has numbness in the right anterior thigh which is unchanged. Pain is controlled. MAXIMILIANO drain output last shift was 90 cc. Yesterday in physical therapy ambling roughly 35 feet. She is passing flatus but no bowel movement. Review of Systems Review of Systems: All systems reviewed & are unremarkable except as noted in HPI & below Physical Exam Physical Exam: Alert and oriented x3 Lying in bed in no acute distress Lumbar dressing is clean dry intact with functioning MAXIMILIANO drain 5 5 bilateral lower extremity strength Calf soft and nontender bilaterally Results & Data ([facility]) Vital Signs (Past 12 Hours) Vital Signs Temp Pulse Resp BP Pulse Ox O2 Del Method FiO2 02/25/22 07:15 37.2 C 58 L 18 108/71 94 Room Air 02/25/22 04:00 36.7 C 64 16 118/64 96 Room Air 02/25/22 02:46 18 02/24/22 22:50 18
--- NOTE | 2022-02-25 13:09 | Hospitalist Progress Note ---
Date of Service February 25, 2022 Assessment & Plan (1) Spinal stenosis, lumbar: Plan: (1) Spinal stenosis, lumbar: Status post lumbar spine surgery -Stable overall Aspirin on hold till okay with surgery service -Hemoglobin 11.8; no signs and symptoms of active bleeding. (2) Morbid obesity with BMI of 45.0-49.9, adult: - BMI 46.2 - S/p gastric bypass surgery in July 2020 (3) DM type 2 (diabetes mellitus, type 2): -A1c 5.0 -Not on any medications -BSG 109 (4) Asthma, allergic: - Continue Advair inh, ipratropium-albuterol -Respiratory status stable (5) Schnitzler syndrome: -Continue anakinra 100 mg SQ daily for such. Will order non-formulary medicat ion and plans to bring this in from home, needs refridgerated (6) Moderate obstructive sleep apnea: - cpap HS, pt brought own mask from home DVT ppx: - teds, scds, holding aspirin for now, resume as per Orthopedics CODE: Full code Thank you for this consultation. We will follow the patient with you during their hospital stay. Admission and Anticipated Discharge Date Admission Date: February 23, 2022 Subjective Patient seen and examined at bedside. She is comfortable lying in the bed; not in any distress. She is passing gas but has not had any bowel movement. No complaint of fever, chills, chest pain, palpitation, shortness of breath or urinary symptoms. Review of Systems Review of Systems: All systems reviewed & are unremarkable except as noted in Subjective Physical Exam Physical Exam: General- oriented x 3, not in distress, speaks in sentences with no effort or accessory muscle use Eyes- anicteric Neck- no JVD Lungs- clear breath sounds bilaterally, no crackles or wheezing Heart- normal rate, regular rhythm; no murmurs Abdomen- normal bowel sounds, nondistended, soft, nontender Extremities- no pretibial edema, no calf tenderness Back-dressing in place, no bleeding or discharge, MAXIMILIANO drain in place with moderate serosanguineous output Neuro- alert, oriented x 3; no gross focal neurologic deficits Skin- warm & dry Results & Data Results & Data ([facility]) Vital Signs (Past 12 Hours) Vital Signs Temp Pulse Resp BP Pulse Ox O2 Del Method FiO2 02/25/22 07:15 37.2 C 58 L 18 108/71 94 Room Air 02/25/22 04:00 36.7 C 64 16 118/64 96 Room Air 02/25/22 02:46 18 21 Laboratory Results Laboratory Results WBC 7.55 K/ul (4.8-10.8) 02/24/22 08:48 RBC 3.92 M/uL (3.93-5.22) L 02/24/22 08:48 Hgb 11.8 g/dl (12.0-16.0) L 02/24/22 08:48 Hct 35.8 % (34.1-44.9) 02/24/22 08:48 MCV 91.3 fL (80.0-100.0) 02/24/22 08:48 MCH 30.1 pg (25.0-34.0) 02/24/22 08:48 MCHC 33.0 g/dL (32.0-36.0) 02/24/22 08:48 RDW Std Deviation 41.3 fL (36.4-46.3) 02/24/22 08:48 RDW Coeff of Don 12.5 % (11.5-14.5) 02/24/22 08:48 Plt Count 181 K/uL (130-400) 02/24/22 08:48 MPV 11.0 fL (9.4-12.3) 02/24/22 08:48 Immature Gran % (Auto) 0.4 % 02/24/22 08:48 Neut % (Auto) 54.4 % 02/24/22 08:48 Lymph % (Auto) 30.5 % 02/24/22 08:48 [place] % (Auto) 11.4 % 02/24/22 08:48 Eos % (Auto) 2.8 % 02/24/22 08:48 Baso % (Auto) 0.5 % 02/24/22 08:48 Neut # (Auto) 4.11 K/uL (1.4-6.5) 02/24/22 08:48 Lymph # (Auto) 2.30 K/uL (1.2-3.4) 02/24/22 08:48 [place] # (Auto) 0.86 K/uL (0.24-0.82) H 02/24/22 08:48 Eos # (Auto) 0.21 K/uL (0-0.50) 02/24/22 08:48 Baso # (Auto) 0.04 K/uL (0-0.2) 02/24/22 08:48 Immature Gran # (Auto) 0.03 K/uL (0.00-0.02) H 02/24/22 08:48 Sodium 138 mmol/L (136-145) 02/24/22 08:48 Potassium 4.1 mmol/L (3.5-5.1) 02/24/22 08:48 Chloride 105 mmol/L (98-107) 02/24/22 08:48 Carbon Dioxide 31 mmol/L (21-32) 02/24/22 08:48 Anion Gap 2 (3-11) L 02/24/22 08:48 BUN 14 mg/dl (6-23) 02/24/22 08:48 Creatinine 0.74 mg/dl (0.6-1.2) 02/24/22 08:48 Est Cr Clr Drug Dosing 114.5 ml/min 02/24/22 08:48 Est GFR ( Amer) 103.5 ml/min 02/24/22 08:48 Est GFR (Non-Af Amer) 89.3 ml/min 02/24/22 08:48 BUN/Creatinine Ratio 18.9 (10-20) 02/24/22 08:48 Glucose 92 mg/dl (70-99(Fasting)) 02/24/22 08:48 POC Glucose 109 mg/dl (70-99) H 02/24/22 11:51 Calcium 8.6 mg/dl (8.5-10.1) 02/24/22 08:48 SARS-CoV-2, RNA, NAAT NEGATIVE (NEGATIVE) 02/23/22 10:50 Impressions Lumbar Spine X-Ray 02/23/22 12:35 INTRAOPERATIVE RADIOGRAPHS CLINICAL HISTORY: Lumbar spinal fusion surgery. Fluoroscopy time: 20 seconds. FINDINGS: 2 spot fluoroscopic views of the lumbar spine are presented. There is evidence of discectomy at L2-L3, L3-L4, and L4-L5. Interpedicular screws are present at L2-L3. The orthopedic hardware appears intact. IMPRESSION: Intraoperative images from lumbar spinal fusion surgery as above. Electronically signed by: Deepak Conde M.D. 02/23/2022 2:53 PM
[2022-02-25] MEDS: MAGNESIUM HYDROXIDE SUSP 30 ML UDC PO PRN (13:14)
[2022-02-25] MEDS: DOCUSATE SODIUM/SENNA 50/8.6MG TAB PO SCH (20:05)
[2022-02-25] MEDS: risperiDONE 1 MG TABLET PO SCH (20:06)
[2022-02-26] MEDS: ALLERGY Noted to ORDERED Medication SCH ×2 (00:29→08:11)
[2022-02-26] MEDS: POLYETHYLENE (MIRALAX) 17 GM PACK PO SCH ×2 (00:29→05:24)
[2022-02-26] MEDS: oxyCODONE HCL IR 5 MG TAB (IMMEDIATE RELEASE) PO PRN ×2 (02:21→08:11)
[2022-02-26] MEDS: MAGNESIUM HYDROXIDE SUSP 30 ML UDC PO PRN (08:11)
[2022-02-26] MEDS: METOPROLOL TARTRATE 25 MG TAB PO SCH (08:12)
[2022-02-26] MEDS: MULTIVITAMIN TAB PO SCH (08:12)
[2022-02-26] MEDS: FLUTICASONE/VILANTEROL 200/25MCG 14 PUFFS/INHALER INH SCH (08:12)
[2022-02-26] MEDS ORDERED: FUROSEMIDE 20 MG TAB PO SCH (09:00)
[2022-02-26] MEDS: ALPRAZolam 0.5 MG TABLET PO SCH (09:44)
[2022-02-26] MEDS: DULoxetine HCL 30 MG CAP PO SCH (09:45)
[2022-02-26] MEDS: PANTOprazole 40 MG TAB PO SCH (09:45)
[2022-02-26] MEDS: CHOLECALCIFEROL 1,000 UNITS 25 MCG TAB PO SCH (09:45)
[2022-02-26] MEDS: MONTELUKAST SODIUM 10 MG TABLET PO SCH (09:45)
[2022-02-26] MEDS: DULoxetine HCL 60 MG CAP PO SCH (09:45)
[2022-02-26] MEDS: ANAKINRA SC SCH (09:46)
--- NOTE | 2022-02-26 10:13 | Discharge Summary ---
Date of Service February 26, 2022 Admission HPI Per Admitting Provider This a 48-year-old female known to me the presents with chronic persistent back and bilateral leg pain. Failing since course of nonoperative care is here for surgical intervention. Principal Diagnosis Lumbar spinal stenosis with neurogenic claudication Discharge Data Allergies Allergy/AdvReac Type Severity Reaction Status Date / Time adalimumab Allergy Unknown generalized Verified 02/23/22 10:55 swelling ketorolac Allergy Unknown Hives Verified 02/23/22 10:55 latex Allergy Unknown RASH Verified 02/23/22 10:55 nitrofurantoin Allergy Unknown Hives Verified 02/23/22 10:55 pregabalin Allergy Unknown mouth Verified 02/23/22 10:55 swelling/hives triprolidine Allergy Unknown Tachycardia Verified 02/23/22 10:55 Consultations 02/23/22 18:00 Consult Hospitalist Routine Procedures Performed Operation Date: 02/23/22 12:35 Actual Procedures p L2-L3 Decompression and Fusion, Spinal Cord Monitoring(Not Applicable) - Sunny Salcedo DO s L3-L5 Hardware Removal, (Not Applicable) - Sunny Salcedo DO Ordered Studies 02/23/22 12:35 FL lumbar spine 2-3V Routine Hospital Course (1) DDD (degenerative disc disease), lumbar: Patient 1 patient underwent lumbar decompression fusion tolerated this well was taken to the orthopedic floor postoperative. Postop day 1 she was up and ambulating progress postop day #2 on postop day #3 pain was controlled leg symptoms improved good strength testing socially discharged home. Discharge orders and instructions from the chart for further review. Total Time Total Time Spent Total Time Spent (In Minutes): 20 minutes Discharge Plan Discharge Items Patient Disposition: Home - Self-Care Reason For Visit: Spinal Stenosis, Lumbar Region without Neurogenic Discharge Diagnosis: Lumbar spinal stenosis with neurogenic claudication Activity: As commented below Non-emergency contact: Primary Care Provider Call non-emergency contact if: you have any medication questions Follow-up/Referrals: Aubrey Mcmullen MD [Primary Care Provider] - Diet: Regular Addtl Attending Provider Instructions: ACTIVITY RECOMMENDATIONS: SELF CARE INSTRUCTIONS AFTER THORACIC/LUMBAR FUSIONS 1. You may walk to your tolerance. It is good exercise for your legs and back. Expect some back and intermittent leg aches and pains. 2. You may perform "counter-top" level activities (make a sandwich, julio cesar with a project, etc.). 3. No bending or lifting of more than 10 pounds or back twisting of any nature (roll like a log when turning in bed). 4. You may ride in a car for 20-30 minutes at a time. No driving until after your first visit with your doctor. 5. Frequent changes of position and restricting sitting to 30 minutes at a time will help limit the amount of back spasms and stiffness you may experience. 6. You may discontinue the use of ambulatory aids (cane, crutches, etc.) once your strength and confidence allow. 7. You may manager of financial the shower and let water strike your incision when you arrive home at least once daily. Do not take a tub bath, sit in a hot tub or go into a swimming pool until after your first recheck in the office. SPECIAL CARE INSTRUCTIONS: VERY IMPORTANT TO READ AND REVIEW A. Your surgical incision has been closed with a cosmetic suture under the skin that will dissolve in about 6 weeks. In 14 days, you can use a pair of clean scissors and cut the suture that is left outside of the skin at the ends of your incision. 1. The small skin tapes can be removed 7 days after surgery if they have not fallen off by that point. 2. You may keep the wound open to air as much as possible to promote healing after post-op day number 5 unless told otherwise by your doctor. 3. If you think the wound looks like it is becoming infected (redness or worsening drainage) and/or you are experiencing fever, chill or worsening back pain and muscle spasms, contact the office so that we may evaluate you as soon as possible. B. Complications are uncommon, but please contact us if you have any signs or symptoms of: 1. wound infection (fever higher than 102.5 degrees F, redness, separation of wound, drainage, or increasing pain from the incision) 2. blood clots in legs (pain, swelling, redness and warmth in legs) 3. urinary tract infection (fever higher than 102.5 degrees F, burning upon urination or increased frequency of urination) 4. nerve problems (inability to walk on your toes or heels, numbness, loss of bowel or bladder control) 5. any other symptoms that concern you C. Please call the office at if you have any concerns or questions about your operation or recovery. D. No smoking! Smoking drastically decreases the chance of a solid fusion. E. Do not take any anti-inflammatory medications (Indocin, Advil, Motrin, Aspirin, Naprosyn, etc.) as these may inhibit the chance of a solid fusion. Tylenol is okay to take for pain. MANAGING PAIN AFTER SPINAL SURGERY 1. Narcotic medication is intended for short-term use and will be provided for surgical pain. Surgical pain usually lasts for a period of 4-6 weeks. Narcotic medication includes Percocet, Vicodin, Darvocet, Tylenol #3 or Lortab. 2. Longer-term pain is more appropriately treated with non-narcotic medication such as Tylenol ES. 3. Muscle spasm is not appropriately treated with narcotics. Muscle relaxers such as Soma, Flexeril or Skelaxin can be used along with Tylenol ES. 4. Remember that we all live with some "aches and pains". This is not unusual or uncommon after an injury or as we get older. a. Back pain is expected and may include muscle spasms for 4 to 6 weeks after surgery. The pain should gradually improve. If the pain worsens for no apparent reason, please contact the office. b. Intermittent leg pain may also be experienced and should not be concerned about unless it worsens for no apparent reason. If so, please contact the office. 5. We will provide appropriate medication within the normal guidelines of their prescribed use. We will also be very cautious and aware of potential abuse and extended duration of patients' medication needs. a. Pain medications are for your comfort and to assist with sleep and rest so that the tissue can heal. They are not provided in order to return to normal activity and should not be used through the day. To do so or worsening pain at night can result from ongoing tissue damage and development of tolerance to the prescribed medicine. 6. Please allow 2-3 days to process refills. Prescriptions will not be mailed but must be picked up at the office. FOLLOW UP VISIT: Keep your scheduled follow-up appointment. Any questions, please call the office at . Pending Studies at Discharge: No Stand-Alone Forms: [employer], Smoking Cessation Medications and DC Order Prescriptions: New oxycodone 5 mg tablet 5 mg PO Q6H PRN (Reason: pain, severe) Qty: 30 0RF tramadol 50 mg tablet 50 mg PO Q6H PRN (Reason: pain, moderate) Qty: 30 0RF Continued fluticasone propion-salmeterol [Advair Diskus] 250-50 mcg/dose Blister With Device 1 inh INHALATION BID PRN (Reason: upper respiratory infection) ipratropium-albuterol 0.5 mg-3 mg(2.5 mg base)/3 mL Solution For Nebulization 3 ml INHALATION QID PRN (Reason: Shortness Of Breath) alprazolam 1 mg Tablet 1 mg PO BID fexofenadine 180 mg Tablet 180 mg PO DAILY PRN (Reason: Allergy Symptoms) aspirin [Robb Low Dose Aspirin] 81 mg Tablet,Delayed Release (Dr/Ec) 81 mg PO QAM pantoprazole 40 mg Tablet,Delayed Release (Dr/Ec) 40 mg PO QAM montelukast 10 mg Tablet 10 mg PO QAM furosemide 20 mg Tablet 20 mg PO QAM albuterol sulfate 90 mcg/actuation Hfa Aerosol Inhaler 2 puff INHALATION Q4 PRN (Reason: Shortness Of Breath) anakinra 100 mg/0.67 mL Syringe 100 mg SUBCUT QAM duloxetine 30 mg Capsule,Delayed Release(Dr/Ec) 30 mg PO QAM Label Comments: in the winter i take ' duloxetine 60 mg Capsule,Delayed Release(Dr/Ec) 60 mg PO QAM cholecalciferol (vitamin D3) [Vitamin D3] 2,000 unit Tablet 1,000 unit PO QAM oxycodone-acetaminophen [Percocet] 5-325 mg Tablet 1 tab PO QID PRN (Reason: Pain) calcium 600 mg Capsule 600 mg PO BID multivitamin Capsule 1 cap PO BID risperidone [Risperdal] 1 mg Tablet 1 mg PO HS metoprolol tartrate 25 mg Tablet 25 mg PO BID cyclobenzaprine 10 mg tablet 10 mg PO TID PRN (Reason: muscle spasm) Qty: 12 0RF Discharge Orders: Discharge Order (Routine); Ordered 02/26/22 Ordered By: Sunny Salcedo Admission Data Admit Date/Time: 02/23/22 14:07 Attending Provider: Sunny Salcedo Admit Provider: Sunny Salcedo Primary Care Provider: Benedict,Aubrey J. Other Providers: Bong Menon ; Nick Sherman ; Dafne Kwong
--- NOTE | 2022-02-26 10:47 | Hospitalist Progress Note ---
Date of Service February 26, 2022 Assessment & Plan (1) Spinal stenosis, lumbar: Plan: (1) Spinal stenosis, lumbar: Status post lumbar spine surgery -Stable overall Aspirin on hold till okay with surgery service -Hemoglobin 11.8; no signs and symptoms of active bleeding. (2) Morbid obesity with BMI of 45.0-49.9, adult: - BMI 46.2 - S/p gastric bypass surgery in July 2020 (3) DM type 2 (diabetes mellitus, type 2): -A1c 5.0 -Not on any medications -BSG 109 (4) Asthma, allergic: - Continue Advair inh, ipratropium-albuterol -Respiratory status stable (5) Schnitzler syndrome: -Continue anakinra 100 mg SQ daily for such. Will order non-formulary medicat ion and plans to bring this in from home, needs refridgerated (6) Moderate obstructive sleep apnea: - cpap HS, pt brought own mask from home DVT ppx: - teds, scds, holding aspirin for now, resume as per Orthopedics CODE: Full code Thank you for this consultation. We will follow the patient with you during their hospital stay. Admission and Anticipated Discharge Date Admission Date: February 23, 2022 Supervising Physician Co-Signing Physician Notes Patient seen and examined independently. Agree with above documentation by Dafne Kwong PA-C She is ambulating with the help of the walker without any difficulty. Resume home medication and follow-up with primary care doctor on discharge. Subjective Patient seen and examined at bedside. She is standing at bedside packing up her things to go home. Feeling comfortable with pain controlled. Ambulating without issue. Still has drain in which is about to get removed. Passing flatus but no bowel movement yet. Denies any fever, chills, lightheadedness, chest pain, palpitation, shortness of breath or urinary symptoms. Review of Systems Review of Systems: At least ten systems reviewed and negative except as noted in the HPI. Physical Exam Physical Exam: Gen: WD/WN, NAD, standing at bedside, A&Ox3 HEENT: Normocephalic, atraumatic, conjunctivae moist, sclerae anicteric, mucous membranes moist Lung: Clear to Auscultation bilaterally, no wheezes/rales/rhonchi Heart: Regular rate, regular rhythm, no murmurs, rubs, or gallops Abdomen: Soft, NT, ND +BS x 4 Extremities: +S/p spinal dressing c/d/i. +MAXIMILIANO drain visualized. No edema Skin: Warm, no rash Results & Data Results & Data ([facility]) Vital Signs (Past 12 Hours) Vital Signs Temp Pulse Resp BP Pulse Ox O2 Del Method FiO2 02/26/22 07:20 37.1 C 56 L 18 103/65 96 Room Air 02/26/22 02:05 17 21
== END 2022-02-26 11:17 | disposition home or self-care (01) | DRG 454 ==
LOC: ASU 10:42 → PACUINP 14:07 → 3N 17:03
DX: Z98.84 Bariatric surgery status; M81.0 Age-related osteoporosis without current pathological fracture; D47.2 Monoclonal gammopathy; Z88.8 Allergy status to other drugs, medicaments and biological substances; E11.9 Type 2 diabetes mellitus without complications; E66.01 Morbid (severe) obesity due to excess calories; M06.9 Rheumatoid arthritis, unspecified; Z91.040 Latex allergy status; Z79.82 Long term (current) use of aspirin; M48.062 Spinal stenosis, lumbar region with neurogenic claudication; Z88.6 Allergy status to analgesic agent; Z68.42 Body mass index [BMI] 45.0-49.9, adult; F41.9 Anxiety disorder, unspecified; G47.33 Obstructive sleep apnea (adult) (pediatric); F32.A Depression, unspecified; K21.9 Gastro-esophageal reflux disease without esophagitis; E72.12 Methylenetetrahydrofolate reductase deficiency; Z87.891 Personal history of nicotine dependence; Z98.1 Arthrodesis status; Z88.1 Allergy status to other antibiotic agents; Z79.899 Other long term (current) drug therapy; J45.909 Unspecified asthma, uncomplicated

== ENCOUNTER 2024-06-30 08:41 | Observation (INO) ==
--- NOTE | 2024-05-22 10:51 | PAT Medication Instructions ---
Medication Instructions Date of Service May 22, 2024 Home Medications albuterol sulfate 90 mcg/actuation aerosol inhaler 2 puff inhalation Q4 PRN Shortness Of Breath alprazolam 1 mg tablet 1 mg PO BID anakinra 100 mg/0.67 mL subcutaneous syringe 100 mg subcut QAM aspirin 81 mg tablet,delayed release (Robb Low Dose Aspirin) 81 mg PO QAM cholecalciferol (vitamin D3) 50 mcg (2,000 unit) tablet (Vitamin D3) 2,000 unit PO QAM duloxetine 30 mg capsule,delayed release 30 mg PO QAM duloxetine 60 mg capsule,delayed release 60 mg PO QAM fexofenadine 180 mg tablet 180 mg PO QAM PRN Allergy Symptoms fluticasone 250 mcg-salmeterol 50 mcg/dose blistr powdr for inhalation (Advair Diskus) 1 inh inhalation BID PRN furosemide 20 mg tablet 20 mg PO QAM ipratropium 0.5 mg-albuterol 3 mg (2.5 mg base)/3 mL nebulization soln 3 ml inhalation QID PRN Shortness Of Breath montelukast 10 mg tablet 10 mg PO QAM pantoprazole 40 mg tablet,delayed release 40 mg PO QAM risperidone 1 mg tablet (Risperdal) 2 mg PO HS calcium carbonate (Calcium 600) 600 mg PO TID cyanocobalamin (vitamin B-12) 1,000 mcg/mL injection solution 1,000 mcg IM .Q3M multivitamin 1 tab PO QAM semaglutide 2 mg/dose (8 mg/3 mL) subcutaneous pen injector 0.5 mg subcut WK tramadol 50 mg tablet 50 mg PO BID PRN pain, moderate valacyclovir 1 gram tablet 2,000 mg PO DAILY PRN Cold Sores magnesium 200 mg tablet 400 mg PO QAM metoprolol succinate 25 mg tablet,extended release 24 hr 25 mg PO QAM MEDICATION INSTRUCTIONS: Continue as directed ipratropium 0.5 mg-albuterol 3 mg (2.5 mg base)/3 mL nebulization soln 3 ml inhalation QID PRN Shortness Of Breath fluticasone 250 mcg-salmeterol 50 mcg/dose blistr powdr for inhalation (Advair Diskus) 1 inh inhalation BID PRN albuterol sulfate 90 mcg/actuation aerosol inhaler 2 puff inhalation Q4 PRN Shortness Of Breath (use if needed; BRING TO HOSPITAL) cyanocobalamin (vitamin B-12) 1,000 mcg/mL injection solution 1,000 mcg IM .Q3M ASK your prescriber and surgeon aspirin 81 mg tablet,delayed release (Robb Low Dose Aspirin) 81 mg PO QAM DO NOT take the morning of surgery cholecalciferol (vitamin D3) 50 mcg (2,000 unit) tablet (Vitamin D3) 2,000 unit PO QAM multivitamin 1 tab PO QAM fexofenadine 180 mg tablet 180 mg PO QAM PRN Allergy Symptoms furosemide 20 mg tablet 20 mg PO QAM magnesium 200 mg tablet 400 mg PO QAM calcium carbonate (Calcium 600) 600 mg PO TID Take morning of surgery With a small sip of water, OTHERWISE NOTHING TO EAT OR DRINK AFTER MIDNIGHT: alprazolam 1 mg tablet 1 mg PO BID metoprolol succinate 25 mg tablet,extended release 24 hr 25 mg PO QAM duloxetine 60 mg capsule,delayed release 60 mg PO QAM montelukast 10 mg tablet 10 mg PO QAM pantoprazole 40 mg tablet,delayed release 40 mg PO QAM duloxetine 30 mg capsule,delayed release 30 mg PO QAM tramadol 50 mg tablet 50 mg PO BID PRN pain, moderate alprazolam 1 mg tablet 1 mg PO BID valacyclovir 1 gram tablet 2,000 mg PO DAILY PRN Cold Sores Take evening before surgery alprazolam 1 mg tablet 1 mg PO BID tramadol 50 mg tablet 50 mg PO BID PRN pain, moderate alprazolam 1 mg tablet 1 mg PO BID risperidone 1 mg tablet (Risperdal) 2 mg PO HS calcium carbonate (Calcium 600) 600 mg PO TID Other Notes ASK your prescriber for instructions: anakinra 100 mg/0.67 mL subcutaneous syringe 100 mg subcut QAM If starting prior to surgery, will need to hold for 7 days before surgery (last dose on or before 06/23/24): semaglutide 2 mg/dose (8 mg/3 mL) subcutaneous pen injector 0.5 mg subcut WK If you have any questions please call us at [phone] or [phone] or [phone] or [phone]
--- NOTE | 2024-05-24 09:36 | Anesthesiology Consultation ---
Date of Service May 24, 2024 Assessment & Plan (1) Encounter for pre-operative examination: - check BSG am DOS. - cardiology office visit 05/05/24 [facility]: "...premature ventricular contractions and sinus bradycardia...upcoming knee surgery...resting heart rate is often in the forties...occasional lightheadedness and fatigue...no dizziness...episode of chest pain evaluated in the ER in August 2023 with normal EKG, troponin tests and a CT angiogram showing no blood clot...relieved by Maalox...history of elevated lipase levels...normalized by April 29, 2024...moderate colonic stool burden with no obstruction...proposed reducing metoprolol dose to manage bradycardia while maintaining symptomatic relief for PVCs. Patient prefers to avoid dobutamine stress tests due to severe discomfort experienced in the past... postural hypotension...surgery is considered medium-risk from a cardiac standpoint...estimated to have a low risk of perioperative cardiac complication...will stay at least one night post-surgery for monitoring. Proceed with knee surgery as planned. No further cardiac testing required perioperatively..." - Outpatient joint assessment: Patient is currently scheduled for inpatient pathway. If re-evaluated and patient/surgeon requests outpatient pathway, patient is not ideal candidate for outpatient joint program from anesthesia standpoint. Chart Review Chart Review: Acceptable Risk for Surgery and Patient seen in Pre Admission Testing Teaching & Discussion Pre-Anesthesia Teaching/Discussion Notes: Instructed NPO after midnight before surgery, except medications with 15 cc of water. Medication instructions provided according to the PAT guidelines. History Surgery Operation Date: 01/14/24 09:00 Proposed Procedures p Left Total Knee Arthroplasty - Noam Daniel DO Operation Date: 06/30/24 09:00 Proposed Procedures p Left Total Knee Arthroplasty - Noam Daniel DO Height/Weight Height: 5 ft 6 in Weight: 140.1 kg Allergies Allergy/AdvReac Type Severity Reaction Status Date / Time adalimumab Allergy Mild generalized Verified 05/15/24 12:17 swelling Egg Derived Allergy Mild Rash Verified 05/15/24 12:17 ketorolac Allergy Mild Hives Verified 05/15/24 12:17 latex Allergy Mild RASH Verified 05/15/24 12:17 nitrofurantoin Allergy Mild Hives Verified 05/15/24 12:17 pregabalin Allergy Mild mouth Verified 05/15/24 12:17 swelling/hives triprolidine AdvReac Intermediate Tachycardia Verified 05/15/24 12:17 Medications Home Medications Medication Instructions Recorded Confirmed Last Taken albuterol sulfate 90 mcg/actuation 2 puff inhalation Q4 PRN Shortness 04/18/19 05/15/24 01/24/22 aerosol inhaler Of Breath alprazolam 1 mg tablet 1 mg PO BID 04/18/19 05/15/24 02/23/22 07:00 anakinra 100 mg/0.67 mL 100 mg subcut QAM 04/18/19 05/15/24 02/23/22 07:00 subcutaneous syringe aspirin 81 mg tablet,delayed 81 mg PO QAM 04/18/19 05/15/24 02/22/22 07:00 release (Robb Low Dose Aspirin) cholecalciferol (vitamin D3) 50 2,000 unit PO QAM 04/18/19 05/15/24 02/23/22 07:00 mcg (2,000 unit) tablet (Vitamin D3) duloxetine 30 mg capsule,delayed 30 mg PO QAM 04/18/19 05/15/24 02/23/22 07:00 release duloxetine 60 mg capsule,delayed 60 mg PO QAM 04/18/19 05/15/24 02/23/22 07:00 release fexofenadine 180 mg tablet 180 mg PO QAM PRN Allergy Symptoms 04/18/19 05/15/24 02/22/22 07:00 fluticasone 250 mcg-salmeterol 50 1 inh inhalation BID PRN upper 04/18/19 05/15/24 02/23/22 07:00 mcg/dose blistr powdr for respiratory infection inhalation (Advair Diskus) furosemide 20 mg tablet 20 mg PO QAM 04/18/19 05/15/24 02/22/22 07:00 ipratropium 0.5 mg-albuterol 3 mg 3 ml inhalation QID PRN Shortness 04/18/19 05/15/24 01/24/22 (2.5 mg base)/3 mL nebulization Of Breath soln montelukast 10 mg tablet 10 mg PO QAM 04/18/19 05/15/24 02/23/22 07:00 pantoprazole 40 mg tablet,delayed 40 mg PO QAM 04/18/19 05/15/24 02/23/22 07:00 release risperidone 1 mg tablet (Risperdal) 2 mg PO HS 04/03/21 05/15/24 02/22/22 21:00 calcium carbonate (Calcium 600) 600 mg PO TID 09/02/23 05/15/24 Unknown cyanocobalamin (vitamin B-12) 1,000 mcg IM .Q3M 09/02/23 05/15/24 06/21/23 1,000 mcg/mL injection solution multivitamin 1 tab PO QAM 09/02/23 05/15/24 Unknown semaglutide 2 mg/dose (8 mg/3 mL) 0.5 mg subcut WK 09/02/23 05/15/24 Unknown subcutaneous pen injector tramadol 50 mg tablet 50 mg PO BID PRN pain, moderate 09/02/23 05/15/24 Unknown valacyclovir 1 gram tablet 2,000 mg PO DAILY PRN Cold Sores 09/02/23 05/15/24 Unknown magnesium 200 mg tablet 400 mg PO QAM 05/15/24 05/15/24 Unknown metoprolol succinate 25 mg 25 mg PO QAM 05/15/24 05/15/24 Unknown tablet,extended release 24 hr Additional Notes: Patient was advised and it was corrected on provided medication instructions to only take usual 1 mg dose of alprazolam in the morning. Past Medical History Medical History (Updated 05/24/24 @ 10:12 by Dalia Jackman PA-C) Anxiety Asthma very well controlled - only uses inhalers as needed due to cost, last use was early winter Bradycardia at rest, occasionally in the 40s, monitored by dr. barba Chronic back pain Degenerative disc disease Depression Diabetes mellitus, type 2 NIDDM Environmental and seasonal allergies Fibromyalgia GERD (gastroesophageal reflux disease) controlled, stable per pt Hepatitis A (1981) Hx 1981- treated History of anesthesia reaction "one time i was inadvertenly not sleeping when they intubated me- it was awful" History of blood transfusion during initial History of COVID-19 (05/2021) denies hospitalization-symptoms resolved History of dysphagia Hx of migraines rare Hyperlipidemia Hypertension controlled, stable per pt Morbid obesity with BMI of 60.0-69.9, adult MTHFR gene mutation Dx d/t family hx- no personal issues Non-alcoholic fatty liver disease Osteoarthritis Panic disorder PVC's (premature ventricular contractions) "benign" - reason for beta-catalina- Follows with Dr. Barba (05/05/24)- chronic associated dizziness, palpitations or shortness of breath lasting several beats Rheumatoid arthritis follows with rheum- dr[facility] calixto ([facility]) Schnitzler syndrome SIADH (syndrome of inappropriate ADH production) Sleep apnea CPAP (compliant) Spinal stenosis TMJ (temporomandibular joint disorder) Hx locking, had surgery 1987- has clicking of left side of jaw Vertigo chronic Patient denies h/o stroke, seizures, heart attack, heart failure, or blood clots/DVTs. Exercise / Class Metabolic Activity II 4-5 Yardwork/Stairs/Walk up hill (denies chest discomfort or shortness of breath with one flight of stairs) Past Family History Family History Father Family history of diabetes mellitus Other No family history of adverse response to anesthesia Past Surgical History Surgical History History of appendectomy History of carpal tunnel release of both wrists History of section x2 History of cholecystectomy History of colonoscopy with polypectomy History of dilatation and curettage x3 History of esophagogastroduodenoscopy (EGD) History of gastric bypass july 2020 History of lumbar spinal fusion (2021) x3--L4-5, S1 most recent 2021 - L2-L3 History of mandibular surgery (1987) "bilateral ostomies of mandible and maxilla with palate grafting"- has clicking of left side of jaw, no locking History of sinus surgery History of tonsillectomy and adenoidectomy History of total abdominal hysterectomy and bilateral salpingo-oophorectomy History of wisdom tooth extraction Nausea and vomiting after administration of anesthetic agent with general anestheisa Status post trigger finger release right thumb History of PONV History of PONV and Hx of Motion Sickness Social History Smoking Status: Former smoker tobacco type: cigarettes Do You Dip or Chew Tobacco: No Smoking End Date: 2002 Hx Alcohol Use: Yes Alcohol type: wine alcohol intake frequency: a few times a month Alcohol Intake Frequency Comment: once per month Hx Substance Use: No substance use type: does not use Review of Systems Patient denies chest pain, shortness of breath, dyspnea on exertion, fever, chills, cough, or wheezing. Physical Exam Vital Signs Vitals BP 111/72 P 54 TEMP 98.8 SP02 94% on RA RESP 19 Physical Patient resting comfortably in chair in no acute distress, alert and oriented, responding appropriately throughout visit Full cervical extension range of motion without pain TMD < 3 finger breadths Mallampati Score 3 Dentition: several caps/crowns, denies chipped or loose teeth, implants or bridges Lungs: normal respiratory effort. Good air movement, clear throughout to auscultation, no adventitious breath sounds Cardiac: regular rate and rhythm, no murmurs noted Carotid arteries: negative bruit bilat Lab Results Anesthesia Preop Results Results Anesthesia Widget: PT 10.6 Seconds (9.0-12.0) 05/24/24 PTT 25 Seconds (21-31) 05/24/24 INR 1.0 (0.9-1.1) 05/24/24 Blood Type A Positive 05/24/24 Antibody Screen NEGATIVE 05/24/24 Testing Laboratory Results 05/09/24 WBC: 8.4 H/H: 14/44 PLATELETS: 263,000 05/15/24 SODIUM: 140 POTASSIUM: 4.5 CHLORIDE: 102 CO2: 26 BUN: 14 CREATININE: 0.9 GLUCOSE: 84 A1c: 5.4% Electrocardiogram Date: 05/05/24 Sinus bradycardia, rate 47 bpm Low voltage QRS, consider pulmonary disease, pericardial effusion or normal variant Cannot rule out anterior infarct, age undetermined 01/06/22 EKG comparison: PACs are no longer present Chest X-Ray Date: 04/04/24 No acute pulmonary abnormality seen radiographically Cervical Spine Date: 05/24/24 There is mild to moderate diffuse degenerative disc disease, mildly progressive. No fracture or subluxation. No abnormal translation. IMPRESSION: Progressive degenerative changes.
--- NOTE | 2024-06-28 15:05 | History & Physical Report ---
Date of Service June 28, 2024 Assessment & Plan (1) Osteoarthritis, knee: We will proceed with a left total knee arthroplasty. Postoperatively, she will be started on aspirin for DVT prophylaxis and kept overnight in the hospital for medical management. She plans to have the hospital set up home health for discharge. History of Present Illness Chief Complaint: Osteoarthritis of the left knee. Primary Care Provider: Aubrey Mcmullen MD Zenia is a pleasant 58-year-old female who has been dealing with chronic increasing left knee pain. X-rays and clinical exam have been diagnostic for advanced arthritis of her left knee. After failing conservative treatment, she has elected to proceed with a left total knee arthroplasty. Allergies Allergy/AdvReac Type Severity Reaction Status Date / Time adalimumab Allergy Mild generalized Verified 05/15/24 12:17 swelling Egg Derived Allergy Mild Rash Verified 05/15/24 12:17 ketorolac Allergy Mild Hives Verified 05/15/24 12:17 latex Allergy Mild RASH Verified 05/15/24 12:17 nitrofurantoin Allergy Mild Hives Verified 05/15/24 12:17 pregabalin Allergy Mild mouth Verified 05/15/24 12:17 swelling/hives triprolidine AdvReac Intermediate Tachycardia Verified 05/15/24 12:17 Home Medications Medication Instructions Recorded Confirmed Type albuterol sulfate 90 mcg/actuation 2 puff inhalation Q4 PRN Shortness 04/18/19 05/15/24 History aerosol inhaler Of Breath alprazolam 1 mg tablet 1 mg PO BID 04/18/19 05/15/24 History anakinra 100 mg/0.67 mL 100 mg subcut QAM 04/18/19 05/15/24 History subcutaneous syringe aspirin 81 mg tablet,delayed 81 mg PO QAM 04/18/19 05/15/24 History release (Robb Low Dose Aspirin) cholecalciferol (vitamin D3) 50 2,000 unit PO QAM 04/18/19 05/15/24 History mcg (2,000 unit) tablet (Vitamin D3) duloxetine 30 mg capsule,delayed 30 mg PO QAM 04/18/19 05/15/24 History release duloxetine 60 mg capsule,delayed 60 mg PO QAM 04/18/19 05/15/24 History release fexofenadine 180 mg tablet 180 mg PO QAM PRN Allergy Symptoms 04/18/19 05/15/24 History fluticasone 250 mcg-salmeterol 50 1 inh inhalation BID PRN upper 04/18/19 05/15/24 History mcg/dose blistr powdr for respiratory infection inhalation (Advair Diskus) furosemide 20 mg tablet 20 mg PO QAM 04/18/19 05/15/24 History ipratropium 0.5 mg-albuterol 3 mg 3 ml inhalation QID PRN Shortness 04/18/19 05/15/24 History (2.5 mg base)/3 mL nebulization Of Breath soln montelukast 10 mg tablet 10 mg PO QAM 04/18/19 05/15/24 History pantoprazole 40 mg tablet,delayed 40 mg PO QAM 04/18/19 05/15/24 History release risperidone 1 mg tablet (Risperdal) 2 mg PO HS 04/03/21 05/15/24 History calcium carbonate (Calcium 600) 600 mg PO TID 09/02/23 05/15/24 History cyanocobalamin (vitamin B-12) 1,000 mcg IM .Q3M 09/02/23 05/15/24 History 1,000 mcg/mL injection solution multivitamin 1 tab PO QAM 09/02/23 05/15/24 History semaglutide 2 mg/dose (8 mg/3 mL) 0.5 mg subcut WK 09/02/23 05/15/24 History subcutaneous pen injector tramadol 50 mg tablet 50 mg PO BID PRN pain, moderate 09/02/23 05/15/24 History valacyclovir 1 gram tablet 2,000 mg PO DAILY PRN Cold Sores 09/02/23 05/15/24 History magnesium 200 mg tablet 400 mg PO QAM 05/15/24 05/15/24 History metoprolol succinate 25 mg 25 mg PO QAM 05/15/24 05/15/24 History tablet,extended release 24 hr Past Med/Surg History Problem List Osteoarthritis, knee Patellar tendonitis of left knee Morbid obesity with BMI of 45.0-49.9, adult Encounter for pre-operative examination Colon polyp Dysphagia Rheumatoid arthritis History of hepatitis A (Chronic) History of vertigo (Chronic) Migraines (Chronic) Panic disorder (Chronic) GERD (gastroesophageal reflux disease) (Chronic) DDD (degenerative disc disease), lumbar (Chronic) Spinal stenosis, lumbar (Chronic) Schnitzler syndrome (Chronic) Compound heterozygous MTHFR mutation [id number] (Chronic) Chronic sinusitis (Chronic) Moderate obstructive sleep apnea (Chronic) Asthma, allergic (Chronic) Osteoporosis (Chronic) Bipolar disorder (Chronic) Depression (Chronic) DM type 2 (diabetes mellitus, type 2) (Chronic) Medical History History of blood transfusion during initial Panic disorder Rheumatoid arthritis follows with rheum- dr[facility] calixto ([facility]) Vertigo chronic Hx of migraines rare History of dysphagia Bradycardia at rest, occasionally in the 40's, monitored by dr. barba History of anesthesia reaction "one time i was inadvertenly not sleeping when they intubated me- it was awful" SIADH (syndrome of inappropriate ADH production) Environmental and seasonal allergies History of COVID-19 (05/2021) denies hospitalization-symptoms resolved Non-alcoholic fatty liver disease TMJ (temporomandibular joint disorder) Hx locking, had surgery 1987- has clicking of left side of jaw Degenerative disc disease Osteoarthritis Schnitzler syndrome Morbid obesity with BMI of 60.0-69.9, adult Fibromyalgia Chronic back pain Spinal stenosis GERD (gastroesophageal reflux disease) controlled, stable per pt Hepatitis A (1981) Hx 1981- treated Diabetes mellitus, type 2 NIDDM MTHFR gene mutation Dx d/t family hx- no personal issues Depression Anxiety Hypertension controlled, stable per pt Hyperlipidemia PVC's (premature ventricular contractions) "benign" - reason for beta-catalina- Follows with Dr. Barba (05/05/24)- chronic associated dizziness, palpitations or shortness of breath lasting several beats Sleep apnea CPAP (compliant) Asthma very well controlled - only uses inhalers as needed due to cost, last use was early winter Surgical History Nausea and vomiting after administration of anesthetic agent with general anestheisa History of gastric bypass july 2020 History of section x2 History of dilatation and curettage x3 History of total abdominal hysterectomy and bilateral salpingo-oophorectomy Status post trigger finger release right thumb History of carpal tunnel release of both wrists History of lumbar spinal fusion (2021) x3--L4-5, S1 most recent 2021 - L2-L3 History of colonoscopy with polypectomy History of cholecystectomy History of appendectomy History of esophagogastroduodenoscopy (EGD) History of mandibular surgery (1987) "bilateral ostomies of mandible and maxilla with palate grafting"- has clicking of left side of jaw, no locking History of wisdom tooth extraction History of tonsillectomy and adenoidectomy History of sinus surgery Family History Father Family history of diabetes mellitus Other No family history of adverse response to anesthesia Social History Smoking Status: Former smoker Tobacco Type: Cigarettes Second Hand Exposure: No; Do You Dip or Chew Tobacco: No; Hx Alcohol Use: Yes Alcohol type: wine Hx Substance Use: No Preferred Language: Yakut Communication Ability: Effective Stockroom Keeper Required: No Beliefs That Will Affect Care: Jehovah'S Witness Jehovah'S Witness Beliefs: druze Current Living Situation: Spouse Current Living Situation Comment: Lives with and daughter Feels Safe at Home: Yes Assistive Devices: CPAP, Glasses and Nebulizer Review of Systems All systems reviewed & are unremarkable except as noted in HPI & below. Physical Exam On physical exam of the left knee, she has a slight varus deformity. She has tenderness to palpation of the distal medial femoral condyle and over the medial joint line.. Constitutional WD/WN, vitals as above Eyes PERRL, conjunctivae normal, anicteric sclerae ENMT external ear and nose normal, oropharynx normal Neck trachea midline, no thyromegaly Respiratory normal respiratory effort Cardiovascular RRR, no murmur, no edema Gastrointestinal (Abdomen) normal bowel sounds, soft, nontender, no hepatosplenomegaly Psychiatric A+Ox3, euthymic affect Results & Data Results & Data Laboratory Results . Diagnostic Findings X-rays of the left knee show advanced osteoarthritis with joint space narrowing, osteophyte formation, and [id number] articulation. PG Care Time/CCT Total # of Minutes Spent Total Time Spent with Patient: Total time spent is greater than 50% in coordination of care (as documented) at patient's floor/unit and/or counseling patient: Coding Level of Care Code None Diagnoses Osteoarthritis, knee M17.9
[~2024-06-30 08:41] MED LIST changes: -ACETAMINOPHEN 500 MG TAB PO SCH; +BUPIVACAINE 0.5 % 5 MG/1 ML PF 10ML VIAL ONE; -DEXAMETHASONE SOD INJ 4 MG/ML VIAL ONE; -LIDOCAINE 2% MPF LOCAL 5 ML VIAL INFIL ONE; -LR 15ML/HR IV SCH; -MIDAZOLAM HCL 1 MG/ML 2ML VIAL ONE; -ONDANSETRON INJ 2 MG/ML 2 ML VIAL ONE; -PROPOFOL IV EMULSION 10 MG/ML 20 ML VIAL IV ONE; -ROCURONIUM BROMIDE 10 MG/ML 5 ML VIAL IV ONE; +ROPIVACAINE 0.5% 5 MG/ML 30 ML VIAL ONE; -fentaNYL citrate 100 MCG/2 ML VIAL ONE
[2024-06-30] MEDS: GABAPENTIN 600 MG DOSE PO SCH (09:32)
[2024-06-30] MEDS: LR 60ML/HR IV SCH (09:34)
[2024-06-30] MEDS: LR 500ML BOLUS, THEN 15ML/HR IV SCH (09:34)
[2024-06-30] MEDS: ACETAMINOPHEN 500 MG TAB PO SCH ×2 (09:34→15:51)
[2024-06-30] MEDS: FAMOTIDINE 20 MG TAB PO SCH (09:34)
[2024-06-30] MEDS: dexAMETHasone**PF** 10 MG/ML VIAL IV SCH (09:34)
[2024-06-30] MEDS ORDERED: fentaNYL citrate PF 100 MCG/2 ML VIAL ONE (09:46)
[2024-06-30] MEDS ORDERED: MIDAZOLAM HCL 1 MG/ML 2ML VIAL ONE ×2 (09:46→11:45)
[2024-06-30] MEDS ORDERED: LIDOCAINE 2% 2 ML VIAL/AMP(20MG/ML) INFIL ONE (09:47)
[2024-06-30] MEDS ORDERED: ONDANSETRON INJ 2 MG/ML 2 ML VIAL ONE (09:47)
[2024-06-30] MEDS ORDERED: PROPOFOL IV EMULSION 10 MG/ML 20 ML VIAL IV ONE (09:48)
--- NOTE | 2024-06-30 10:39 | History & Physical Bridge Note ---
Date of Service June 30, 2024 History & Physical Bridge Note I have examined the patient, reviewed the History & Physical and in the interval since the performance of the History & Physical I have noted the following changes of clinical significance: no changes noted
[2024-06-30] MEDS ORDERED: ATROPINE SULFATE 0.1 MG/ML 10ML SYR IV PRN (10:59)
[2024-06-30] MEDS ORDERED: fentaNYL citrate PF 100 MCG/2 ML VIAL IV PRN (10:59)
[2024-06-30] MEDS ORDERED: ePHEDrine sulfate 50 MG/ML AMP IV PRN (10:59)
[2024-06-30] MEDS ORDERED: ONDANSETRON INJ 2 MG/ML 2 ML VIAL IV PRN ×2 (10:59→15:08)
[2024-06-30] MEDS ORDERED: Nursing to Pharmacy Communication SCH ×2 (11:00→11:30)
[2024-06-30] MEDS: TRANEXAMIC ACID 1,000 MG **IV Pre-op IV SCH (11:19)
--- OUTSIDE RECORDS SUMMARY | 2024-06-30 11:20 | External Medical Summary | Summary of Care ---
Author Name Unknown Organization [facility] Address [address] [place] [address] Phone [phone] Care Team Providers Care Top And Trim Worker Name Role Phone Aubrey Mcmullen MD Primary Care Provider [phone] Encounter Details Date Type Department Care Team (Late st Contact Info) Description 06/28/2024 5:00 PM EDT Telemedicine Nutrition and Weight Management [address] [place] [address] [id number] Amaris Miller CRNP [address] [id number] Intestinal postoperative nonabsorption* Allergies Active Allergy Reactions Criticality Noted Date Comments Triprolidine-Pse Tachycardia 11/28/1998 Adalimumab Edema Other High 06/27/2014 Generalized edema Ketorolac Tromethamine Edema airway High 11/28/1998 Ketorolac Tromethamine High 04/18/2013 Other reaction(s): hives Latex Hives,Rash 06/04/2020 Pregabalin Hives 01/20/2008 Mouth swelling Nitrofuran Derivatives Hives 11/28/1998 Nitrofurantoin High 12/30/2021 Other reaction(s): hives Pregabalin High 12/30/2021 Other reaction(s): hives documented as of this encounter (statuses as of 06/29/2024) Medications SPACER/AERO-HOLDI NG CHAMBERS DEVIIndications:A sthma, allergic use with inhaler Dx;493.90 1 Device 0 07/13/19 12 Active aspirin 81 MG chewable tabletIndications :Precordial pain,Type 2 diabetes mellitus with hemoglobin A1c goal of less than 7.0% ([facility]) Take 1 Tab by mouth daily. with food. 100 Tab 5 03/24/19 17 Active DULoxetine (CYMBALTA) 30 MG CPEP Take 2 Capsules by mouth in the morning. Active DULoxetine (CYMBALTA) 60 MG CPEP daily. 02/11/20 17 Active Albuterol Sulfate (ALBUTEROL HFA) 108 (90 BASE) MCG/ACT inhalerIndication s:Asthma, allergic, unspecified asthma severity, with acute exacerbation Inhale 2 Puffs by mouth every 4 hours as needed for Shortness of Breath or Wheezing. 18 g 5 09/13/19 20 Active Fexofenadine HCl 180 MG Oral Tablet (Deepa Allergy) Take 1 Tab by mouth daily first thing in the morning. 02/28/20 20 Active ALPRAZolam 1 MG Oral Tablet (xaNAX) 1 Tablet in the morning and 1 Tablet at noon and 1 Tablet before bedtime. 05/16/19 Active risperiDONE 1 MG Oral Tablet (RisperDAL) 2 Tablets at bedtime. At bedtime 05/16/19 Active CPAP every night at bedtime. Active Biotin 5000 MCG Oral Capsule Take 1 Capsule by mouth in the morning. Active Multivitamin Adults 50+ Oral Tablet Take by mouth 2 times a day. Active valACYclovir HCl 1 GM Oral Tablet (Valtrex)Indicati ons:Cold sore Take by mouth 2 Tablets in the morning AND 2 Tablets before bedtime. for cold sores. 4 Tablet 10 12/27/19 22 Active Vitamin D (Cholecalciferol) 25 MCG (1000 UT) Oral Tablet Take 1 Tablet by mouth in the morning. 90 Tablet 2 03/29/19 24 Active Ibuprofen 800 MG Oral Tablet (Motrin) Take 1 Tablet by mouth in the morning and 1 Tablet at noon and 1 Tablet before bedtime. with food for pain. 90 Tablet 7 03/29/19 24 Active Additional Information Patient taking differently:800 mg [id number] PRN, with food for pain, Reported on 05/05/2024 Syringe/Needle (Disp) 25G X 1-1/2" 3 MLIndications:Int estinal postoperative nonabsorption Use with B12 4 Each 3 07/05/19 24 Active Cyanocobalamin 1000 MCG/ML Injection Kit Inject 1,000 mcg into a large muscle every 3 months 1 mL 4 07/05/19 24 Active Syringe/Needle (Disp) 25G X 1" 1 ML Use for B12 injection 4 Each 2 07/14/19 24 Active Cyclobenzaprine HCl 10 MG Oral Tablet (Flexeril) Take 1 Tablet by mouth 2 times a day as needed for Muscle spasms. 20 Tablet 08/04/19 24 Active Calcium Citrate 333 MG Oral Tablet Take 2 pills three times daily 11/11/19 24 Active traMADol HCl 50 MG Oral Tablet (Ultram)Indicatio ns:Spinal stenosis of lumbar region without neurogenic claudication Take 1 Tablet by mouth 2 times a day as needed for Pain, Severe. 180 Tablet 12/02/19 24 Active Furosemide 20 MG Oral Tablet (Lasix) Take 1 Tablet by mouth in the morning. 90 Tablet 3 12/29/19 24 Active Pantoprazole Sodium 40 MG Oral Tablet Delayed Release (Protonix) Take 1 Tablet by mouth in the morning. 90 Tablet 3 12/29/19 24 Active Montelukast Sodium 10 MG Oral Tablet (Singulair) Take 1 Tablet by mouth in the morning. 90 Tablet 3 12/29/19 24 Active Triamcinolone Acetonide 0.1 % External Cream (Aristocort)Indic ations:Contact dermatitis, unspecified contact dermatitis type, unspecified trigger Apply 2x daily to rash on face for 1-2 weeks infrequently when need to change out CPAP mask 80 g 01/05/20 24 Active Ipratropium-Albut cookie 0.5-2.5 (3) MG/3ML Inhalation Solution (Duoneb)Indicatio ns:Acute bronchospasm Inhale 3 mL via nebulizer in the morning and 3 mL at noon and 3 mL in the evening and 3 mL before bedtime. 240 mL 2 04/03/19 25 Active Fluticasone-Salme terol 250-50 MCG/ACT Inhalation Aerosol Powder Breath Activated (Advair Diskus) Inhale 1 Puff by mouth in the morning and 1 Puff before bedtime. 60 Each 5 04/03/19 25 Active Metoprolol Succinate ER 25 MG Oral Tablet Extended Release 24 Hour (Toprol XL) Take 1 Tablet by mouth in the morning. 90 Tablet 3 05/05/19 25 Active Kineret 100 MG/0.67ML Subcutaneous Solution Prefilled Syringe (Anakinra) Inject 100 mg under the skin daily. 18.76 mL 11 05/16/19 25 Active Ozempic (0.25 or 0.5 MG/DOSE) 2 MG/3ML Solution Pen-injector (Semaglutide(0.25 or 0.5MG/DOS)) Inject 0.25mg under the skin once weekly for 4 weeks then increase to 0.5mg under the skin once weekly thereafter 9 mL 1 06/24/19 25 Active Tobramycin-dexAME THasone 0.3-0.1 % Ophthalmic Suspension Instill 1 Drop into eye in the morning and 1 Drop at noon and 1 Drop in the evening and 1 Drop before bedtime. Do all this for 14 days. In affected eye(s) until symptoms resolved.. 2.5 mL 06/27/19 25 025 Active documented as of this encounter (statuses as of 06/29/2024) Active Problems Problem Noted Date Diagnosed Date Primary osteoarthritis of both knees 08/13/2023 Lipedema 05/26/2022 S/P bariatric surgery 07/26/2020 [facility] OTHER*[id number] 06/04/2020 Morbid obesity 03/20/2019 Overview: Per Obesity protocol - Gastroesophageal reflux disease with esophagitis 09/23/2017 [facility]oid [facility] without rheumatoid factor 12/14/2016 Overview (12/14/2016): Rheum Diamond Gregg @ [facility] SIADH (syndrome of inappropriate ADH production) 04/28/2016 Compound heterozygous MTHFR mutation C677T/[id number] C 07/07/2013 Overview (07/07/2013): +FHx of gene mutation. + elevated homocystine on outside lab. Taking Folate. JULES (obstructive sleep apnea) 03/16/2013 Overview (08/25/2013): 08/2013 -- auto CPAP 15 cwp 07/2013 -- CPAP 12-15 cwp 12/08/12 PSG -- AHI 22.6, hypoxemia Clear Care Spinal stenosis of lumbar re gion without neurogenic claudication 08/21/2011 Asthma, mild persistent 10/15/2010 Symptomatic PVCs 10/30/2009 HTN, goal below 130/80 Bipolar 2 disorder Overview (05/12/2009): Bipolar 2 - sees Dr. Benson in [place] Type 2 diabetes mellitus wit h hemoglobin A1c goal of less than 7.0% Overview (12/14/2016): Diet controlled. Never on meds. Osteoporosis Schnitzler syndrome documented as of this encounter (statuses as of 06/29/2024) Resolved Problems Problem Noted Date Diagnosed Date Resolved Date Body mass index (BMI) of 45. 0 to 49.9 in adult 01/13/2021 03/24/2021 Overview: Per Obesity protocol - Per Obesity protocol - Per Obesity protocol - Body mass index (BMI) of 50. 0 to 59.9 in adult 08/20/2020 01/16/2021 Overview: Per Obesity protocol - Per Obesity protocol - Vasculitis 05/10/2020 05/26/2022 Type 2 diabetes mellitus wit h diabetic dermatitis 05/10/2020 03/24/2021 History of chronic urticaria 05/02/2020 03/24/2021 Pruritus, unspecified 05/02/20202021 Eczema 05/02/2020 03/24/2021 Contact dermatitis 05/02/2020 Eating disorder 04/01/2020 03/24/2021 Recurrent urticaria 02/28/2020 03/24/19 22 Bipolar disorder, current episode mixed, mild 09/12/19 20 03/24/2021 Dyslipidemia 09/23/2017 03/25/2021 BMI 50.0-59.9, adult 07/27/2017 020 Overview: Per Obesity protocol #1 BMI 50.0-59.9, adult 06/15/2017 018 Dyslipidemia, goal LDL below 100 12/23/2016 09/23/2017 Atypical chest pain 03/30/2016 06/16/19 18 Shingles 10/03/2012 12/14/2016 DDD (degenerative disc disease), lumbar 08/21/2011 12/14/2016 Backache 08/21/2011 12/14/2016 Rectal pain 08/21/2011 12/14/2016 Multiple joint pain 10/15/2010 12/15/19 17 DERMATITIS - HAND 10/15/2010 12/14/2016 Other specified urticaria 10/15/2010 Overview (06/07/2024): began 06/2010 ICD-10 Update of Inactive Term ANGIOEDEMA 10/15/2010 12/14/2016 Palpitations 10/30/2009 12/14/2016 DEVEL ODONTOGENIC CYSTS 11/06/200311/2016 Other chronic sinusitis 11/06/200311/2016 Carpal tunnel syndrome 05/01/200212/14 Allergic rhinitis 08/13/2000 06/15/2017 Major depressive disorder Overview (12/29/2016): ICD-10 update of inactive term GENERALIZED ANXIETY DIS 09/2009 Overview (05/12/2009): Clarified to Bipolar 2, depressive predominant by Psychiatry Excessive menstruation 05/12 OBESITY, UNSPECIFIED 012 EXT ASTHMA W-O STAT ASTH 12/2010 Endometriosis of other specified sites 09/23/2017 TEMPOROMANDIBULAR JOINT DISO RDERS, UNSPECIFIED 12/14/2016 Overview (06/07/2024): ICD-10 Update of Inactive Term HEPATITIS A W-O COMA 017 Splenomegaly 05/12/2009 Umbilical hernia 12/14/2016 Type 2 diabetes mellitus wit h hemoglobin A1c goal of less than 7.0% 10/15/2010 Overview (07/02/2015): ICD-10 update of inactive term Esophageal reflux 09/23/2017 Lumbago 09/23/2017 Overview (05/12/2009): OA in back and bulging disc - workman's comp injury Displacement of lumbar inter vertebral disc without myelopathy 09/23/2017 Overview (05/12/2009): also sees Dr. Chacon in [place] for Chiropractic tx Vertigo 12/14/2016 documented as of this encounter (statuses as of 06/29/2024) Immunizations Name Administration Dates Next Due Covid-19 Ad26, Single Dose (Geovanna/J&J) 04/18/2021,08/14/2020 HEPATITIS B VACCINE, RECOMB, 20 MCG/ML, ADULT (HEPLISAV-B) 02/08/2023,01/07/2023 PPD 05/26/2022 Pneumococcal Conjugate Vacc, 13 Valent (Prevnar) 02/05/2017 Pneumococcal Polysaccharide PPV23 (Pneumovax) 12/12/2015,01/06/2007 Seasonal Influenza Vac., MDV , IM, 0.5 mL (Fluzone) 12/06/2012,12/03/2011,01/06/2010,01/06 Seasonal Influenza, PF, 6 M & above, IM , (FluLaval or Fluzone) 11/21/2022,12/02/2021,11/29/2020,11/13 Seasonal Influenza, Quadriva lent, No Preserve, Mdck 12/09/2018,12/20/2017,12/14/2016,12/11 Seasonal Influenza, Trivalen t, (IIV3), PF, (Fluzone) 11/09/2023 TDAP (age 10 and older)(Boostrix) 09/27/2019, Zoster Vaccine Recombinant (Shingrix) 10/24/2018 ,08/11/2018 documented as of this encounter Social History Tobacco Use Types Packs/Day Years Used Date Smoking Tobacco: Former Cigarettes 0.8 18 1 04/08/1984 - 02/05/2003 Smokeless Tobacco: Never Comments:NO PASSIVE SMOKE EX POSURE Alcohol Use Standard Drinks/Week Comments No 0 (1 standard drink = 0.6 oz pur e alcohol) PHQ-2 Answer Date Recorded PHQ Adult Total Score 0 01/10/2022 Hunger Vital Sign Answer Date Recorded Within the past 12 months, y ou worried that your food would run out before you got the money to buy more. Never true 05/19/19 25 Within the past 12 months, t he food you bought just didn't last and you didn't have money to get more. Never true 05/18/2024 Childcare Answer Date Recorded Do you feel overwhelmed with taking care of a child, family member or friend? Yes 05/18/2024 Does your family need help f inding childcare? (Household - for ages 0-17 years) Not on file 05/18/2024 Clothing Answer Date Recorded Have you been unable to get clothing when it was really needed? No 05/18/2024 Is your family able to get c lothes or diapers when needed? (Household - for ages 0-17 years) Not on file 05/18/2024 Personal Safety Answer Date Recorded Do you feel unsafe or have concerns for your saf ety? No 05/18/2024 Do you have concerns for you r family's safety? (Household - for ages 0-17 years) Not on file 05/18/2024 Utilities Answer Date Recorded Do you have trouble paying y our heating, water, or electric bill? No 05/18/2024 Is your family able to pay t he heat, water, or electric bill? (Household - for ages 0-17 years) Not on file 05/18/2024 Does your family have access to good internet? (Household - for ages 0-17 years) Not on file 05/18/2024 Employment Status Answer Date Recorded Are you unemployed or without regular income? No 05/18/2024 Does the household have a re gular source of income? (Household - for ages 0-17 years) Not on file 05/18/2024 Social Connections Answer Date Recorded How often do you feel lonely or isolated from th ose around you? Often 05/18/2024 Financial Resource Strain Answer Date R ecorded Do you have any trouble payi ng for your medications, or do you think you might in the future? Yes 05/18/2024 Does your family have troubl e paying for medicine? (Household - for ages 0-17 years) Not on file 05/18/2024 Transportation Needs Answer Date Record ed Do you have trouble getting a ride to medical visits or work? (Adult - for ages 18 years and over) Not on file 05/18/2024 Does your family have a hard time getting a ride to doctors visits? (Household - for ages 0-17 years) Not on file 05/18/2024 Has lack of transportation k ept you from medical appointments, meetings, work, or from getting things needed for daily living? Check all that apply. No 05/18/2024 Do you (or your family) have trouble finding or paying for a ride (transportation)? (Household - for ages 0-17 years) Not on file 05/18/2024 Housing Stability Answer Date Recorded Do you currently live in a s helter or have no steady place to sleep at night? No 05/18/2024 Do you think you are at risk of becoming homeless? (Adult - for ages 18 years and over) Not on file 05/18/2024 Does your family worry about paying for your home or becoming homeless? (Household - for ages 0-17 years) Not on file 0 05/18/2024 Are you homeless or worried that you might be in the future? No 05/18/2024 Are you (or your family) tano eless or worried that you might be in the future? (Household - for ages 0-17 years) Not on file Food Insecurity Answer Date Recorded Within the past 12 months, y ou worried that your food would run out before you got the money to buy more. Never true 05/19/19 25 Within the past 12 months, t he food you bought just didn't last and you didn't have money to get more. Never true 05/18/2024 Do you need food for this week? No 05/18/2024 Comments No Sex and Gender Information Value Date Recorded Sex Assigned at Female 04/10/2019 10:18 AM EST Legal Sex Female 5:09 AM EST Gender Identity Female 04/10/2019 10:18 AM EST Sexual Orientation Straight 04/10/2019 10 :18 AM EST Occupation Industry Job Start Date Job End Date RN Not on file Not on file Not on file documented as of this encounter Functional Status * Are you deaf or do you have serious difficulty hearing? Answer Date of Assessment Author No 07/17/2020 1:29 PM Jose Alejandro Green, RN * Are you blind or do you have serious difficulty seeing, even when wearing glasses? Answer Date of Assessment Author No 07/17/2020 1:29 PM EDT Jose Alejandro Wong RN * Do you have serious difficulty walking or climbing stairs? (5 years old or older) Answer Date of Assessment Author No 07/18/2020 11:46 AM EDT Lydia Nazario RN * Do you have difficulty dressing or bathing? (5 years old or older) Answer Date of Assessment Author No 07/17/2020 1:29 PM EDT Jose Alejandro Wong RN * Because of a physical, mental, or emotional condition, do you have difficulty doing errands alone such as visiting a doctor’s office or shopping? (15 years old or older) Answer Date of Assessment Author No 07/17/2020 1:29 PM DONNYT Jose Alejandro Wong RN documented as of this encounter Mental Status * Because of a physical, mental, or emotional condition, do you have serious difficulty concentrating, remembering, or making decisions? (5 years old or older) Answer Entry Date Author No 07/17/2020 1:29 PM EDT Jose Alejandro Wong RN documented in this encounter Progress Notes * Amaris Miller CRNP - 06/28/2024 4:36 PM EDT [facility] Post Gastric Bypass Patient location: HOME. I was in a hospital or clinic location. After connecting through [employer],patient was verified with two unique identifiers. Patient (or authorized legal medical center representative) was then informed that this was a Telemedicine visit and being conducted confidentially over secure lines. Methods to assure confidentiality were taken. Patient acknowledged consent and understanding of pr ivacy and security of the Telemedicine visit. The patient agreed to participate. Zenia Richard is a 58 year old female who presents in follow up to the comprehensive weight management clinic. 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 Benson in [place] Bipolar disorder ([facility]) Bipolar 2 - sees Dr. Benson in [place] BMI 50.0-59.9, adult ([facility]) Body mass index (BMI) of 60.0 to 69.9 in adult ([facility]) 03/20/2019 Per Obesity protocol - Carpal tunnel syndrome Compound heterozygous MTHFR mutation [id number]/[id number] 07/07/2013 +FHx of gene mutation. + elevated homocystine on outside lab. Taking Folate. Depressive disorder, not elsewhere classified sees Dr. Benson in [place] DEVEL ODONTOGENIC CYSTS 11/06/2003 Displacement of lumbar intervertebral disc without myelopathy also sees Dr. Chacon in [place] for Chiropractic tx DM type 2, goal A1c below 7 Dyslipidemia 09/23/2017 Dyslipidemia, goal LDL below 100 Endometriosis of other specified sites Esophageal reflux Excessive menstruation 1997 resolved after hysterectomy Gastroesophageal reflux disease with esophagitis 09/23/2017 Hepatitis a without hepatic coma 1981 HTN, goal below 140/90 Lipedema 05/26/2022 Lumbago OA in back and bulging disc - workman's comp injury Migraine Moderate obstructive sleep apnea 03/16/201308/2013 -- auto CPAP 15 cwp 07/2013 -- CPAP 12-15 cwp 12/08/12 PSG -- AHI 22.6, hypoxemia Clear Care Obesity, BMI not known JULES (obstructive sleep apnea) 03/16/201308/2013 -- auto CPAP 15 cwp 07/2013 -- CPAP 12-15 cwp 12/08/12 PSG -- AHI 22.6, hypoxemia Clear Care Osteoporosis Panic disorder Personal history of peptic ulcer disease 1982 Shingles 10/03/2012 SIADH (syndrome of inappropriate ADH production) ([facility]) 04/28/2016 Sleep apnea, obstructive Spinal stenosis of lumbar region without neurogenic claudication 08/21/2011 Splenomegaly 07/1997 Temporomandibular joint disorders, unspecified Umbilical hernia Vertigo The patient is s/p laprascopic Gastric Bypass by Dr. Venegas on July 17, 2020. - Weight at the initial clinic visit 380 lbs - Weight at the time of the surgery 378 lbs - Today's weight: 315 lbs - Total weight loss of -63 lbs since surgery, and -65 lbs since initial weight in clinic - The patient's weight has increased 3 lbs since the last visit - Wt Readings from Last 6 Encounters: 05/05/24 (!) 139 kg (306 lb 6.4 oz) 04/24/24 (!) 143.3 kg (316 lb) 03/27/24 (!) 141.7 kg (312 lb 8 oz) 11/09/23 133.8 kg (295 lb) 10/29/23 135.2 kg (298 lb) 08/13/23 (!) 137.4 kg (303 lb) - The patient is receiving dietary and physical activity instructions as part of their weight management treatment. Pt is awaiting approve prescription of Ozempic. Has not started yet. Patient has a knee replacementscheduled on Wednesday. Review of Systems: Constitutional: (+) weight change Cardiovascular: (-) negative: no chest pain, dyspnea, syncope, or palpitations Pulmonary: (-) negative: no cough, wheezing, or shortness of breath Abdominal/GI: (-) negative: no pain, heartburn, dysphagia, bleeding, change in bowel habits, nauseaor vomiting Psychosocial adjustment: No, no Issues with body image, stress management, relationships, and addiction transfer Current recommended meal plan: Stage 4: Patient is getting 60 grams of protein a day. Getting close Patient is getting 64 ounces of fluid a day. Compliance with meal plan: yes Activity Level: Light activity -- limited, has scheduled knee replacement on Wednesday Taking supplements as ordered for each of the following: MVI-- women's one a day twice daily Calcium-- 600 mg in am 600 mg in evening -- double check serving size Vitamin D3-- 1,000 IU daily B12 injections- at home every 3 months Review of patient's allergies indicates: Allergen Reactions Humira [Adalimumab] Edema Other Generalized edema Ketorolac Tromethamine Edema airway Ketorolac Tromethamine Other reaction(s): hives Nitrofurantoin Other reaction(s): hives Pregabalin Other reaction(s): hives Actifed [Triprolidine-Pse] Tachycardia Latex Hives and Rash Lyrica [Pregabalin] Hives Mouth swelling Nitrofuran Derivatives Hives Current Outpatient Medications Medication Sig Dispense Refill SPACER/AERO-HOLDING CHAMBERS DEXTER use with inhaler Dx;493.90 1 Device 0 aspirin 81 MG chewable tablet Take 1 Tab by mouth daily. with food. 100 Tab 5 DULoxetine (CYMBALTA) 30 MG CPEP Take 2 Capsules by mouth in the morning. DULoxetine (CYMBALTA) 60 MG CPEP daily. Albuterol Sulfate (ALBUTEROL HFA) 108 (90 BASE) MCG/ACT inhaler Inhale 2 Puffs by mouth every 4 hours as needed for Shortness of Breath or Wheezing. 18 g 5 Fexofenadine HCl 180 MG Oral Tablet (Deepa Allergy) Take 1 Tab by mouth daily first thing in the morning. ALPRAZolam 1 MG Oral Tablet (xaNAX) 1 Tablet in the morning and 1 Tablet at noon and 1 Tablet before bedtime. risperiDONE 1 MG Oral Tablet (RisperDAL) 2 Tablets at bedtime. At bedtime CPAP every night at bedtime. Biotin 5000 MCG Oral Capsule Take 1 Capsule by mouth in the morning. Multivitamin Adults 50+ Oral Tablet Take by mouth 2 times a day. valACYclovir HCl 1 GM Oral Tablet (Valtrex) Take by mouth 2 Tablets in the morning AND 2 Tablets before bedtime. for cold sores. 4 Tablet 10 Vitamin D (Cholecalciferol) 25 MCG (1000 UT) Oral Tablet Take 1 Tablet by mouth in the morning. 90 Tablet 2 Ibuprofen 800 MG Oral Tablet (Motrin) Take 1 Tablet by mouth in the morning and 1 Tablet at noon and 1 Tablet before bedtime. with food for pain. (Patient taking differently: Take 1 Tablet by mouth every 8 hours as needed. with food for pain) 90 Tablet 7 Syringe/Needle (Disp) 25G X 1-1/2" 3 ML Use with B12 4 Each 3 Cyanocobalamin 1000 MCG/ML Injection Kit Inject 1,000 mcg into a large muscle every 3 months 1 mL 4 Syringe/Needle (Disp) 25G X 1" 1 ML Use for B12 injection 4 Each 2 Cyclobenzaprine HCl 10 MG Oral Tablet (Flexeril) Take 1 Tablet by mouth 2 times a day as needed forMuscle spasms. 20 Tablet 0 Calcium Citrate 333 MG Oral Tablet Take 2 pills three times daily traMADol HCl 50 MG Oral Tablet (Ultram) Take 1 Tablet by mouth 2 times a day as needed for Pain, Severe. 180 Tablet 0 Furosemide 20 MG Oral Tablet (Lasix) Take 1 Tablet by mouth in the morning. 90 Tablet 3 Pantoprazole Sodium 40 MG Oral Tablet Delayed Release (Protonix) Take 1 Tablet by mouth in the morning. 90 Tablet 3 Montelukast Sodium 10 MG Oral Tablet (Singulair) Take 1 Tablet by mouth in the morning. 90 Tablet 3 Triamcinolone Acetonide 0.1 % External Cream (Aristocort) Apply 2x daily to rash on face for 1-2 weeks infrequently when need to change out CPAP mask 80 g 0 Ipratropium-Albuterol 0.5-2.5 (3) MG/3ML Inhalation Solution (Duoneb) Inhale 3 mL via nebulizer in the morning and 3 mL at noon and 3 mL in the evening and 3 mL before bedtime. 240 mL 2 Fluticasone-Salmeterol 250-50 MCG/ACT Inhalation Aerosol Powder Breath Activated (Advair Diskus) Inhale 1 Puff by mouth in the morning and 1 Puff before bedtime. 60 Each 5 Metoprolol Succinate ER 25 MG Oral Tablet Extended Release 24 Hour (Toprol XL) Take 1 Tablet by mouth in the morning. 90 Tablet 3 Kineret 100 MG/0.67ML Subcutaneous Solution Prefilled Syringe (Digital Guardian) Inject 100 mg under the skin daily. 18.76 mL 11 Ozempic (0.25 or 0.5 MG/DOSE) 2 MG/3ML Solution Pen-injector (Semaglutide(0.25 or 0.5MG/DOS)) Inject 0.25mg under the skin once weekly for 4 weeks then increase to 0.5mg under the skin once weekly thereafter 9 mL 1 Tobramycin-dexAMETHasone 0.3-0.1 % Ophthalmic Suspension Instill 1 Drop into eye in the morning and1 Drop at noon and 1 Drop in the evening and 1 Drop before bedtime. Do all this for 14 days. In affected eye(s) until symptoms resolved.. 2.5 mL 0 No current facility-administered medications for this visit. There were no vitals taken for this visit. PHYSICAL EXAMINATION: Awake, alert, pleasant Normal mood and affect Speech clear and appropriate Normal respiratory effort Assessment/Plan: S/P Gastric Bypass Surgery: Will continue with current meal plan. 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 Resolved with stopping. She has normal serum sodium values Dyslipidemia Cholesterol has improved, off meds PVC (premature ventricular contraction) Doing well. No symptoms On Metoprolol 25 mg BID- Depression with anxiety - Continue duloxetine and risperidone - xanax BID Bipolar affective disorder, current episode hypomanic (HCC) - Continue duloxetine and risperidone Xanax as prescribed Lower extremity edema On lasix 20mg daily Elevated hematocrit -persistent over years. -mom has h/o polycythemia vera -saw hematology and not thought to have polycythemia vera The patient agreed to try the plan as discussed and return in three months. They were encouraged tocall or send a patient portal message in the meantime with any questions or concerns prior to theirnext visit. I spent a total of 19 minutes on the date of service in preparation, delivery, and documentation ofthe care provided to Zenia Richard excluding any time spent in the performance of separately billed services. This included, but was not limited to, providing counseling about the benefits of weight loss, about their nutritional status, detailed explanations about calorie count, types of nutrients to choose,and composition of the meals. Motivational interview provided in order to prepare the patient to achieve future goals. SAGE Rojas documented in this encounter Plan of Treatment Upcoming Encounters Date Type Department Care Team (Late st Contact Info) Description 07/06/2024 10:00 AM EDT Telemedicine [facility] [address] [id number] Danni Negron LCSW [address] [id number] 08/08/2024 9:30 AM EDT Telemedicine [facility] [address] [place] [phone] Dee Hays CRNP [address] [place] [id number] 08/28/2024 9:40 AM EDT Office Visit Rheumatology [address] [place] [phone] Noam Witt MD [address] [place] [phone] 11/02/2024 8:30 AM EDT Office Visit Cardiology, [facility] [place] [address] [place] [phone] Diamond Anne CRNP [address] [place] [address] 11/10/2024 10:40 AM EDT Office Visit Family Practice [facility] [place] [address] [place] [address] Aubrey Mcmullen MD [address] [facility] [place] [address] 11/21/2024 10:20 AM EDT [facility] [address], [place] [phone] Cindy Reyes MD [address], [place] [phone] Scheduled Procedures Name Priority Associated Diagnoses Date/Ti me COLONOSCOPY FLEXIBLE PROXIMAL DIAGNOSTIC Recall History of colon polyps Health Maintenance Due Date Last Done Comments Cologuard 07/28/2008 Fecal Occult Blood Test 07/28/2008 Sigmoidoscopy 07/28/2008 Diabetic Foot Exam 03/03/2020 03/03/2019, 1 05/04/2018, 04/20/2018, Additional history exists Pneumococcal Vaccine: 50+ Years (4 of 4 - PCV20 or PCV21) 02/05/2022 02/05/2017, 12/12/2015, 01/06/2007 COVID-19 Vaccine (2023- season) 2023 04/18/2021, 08/14/2020 Diabetic Eye Exam 03/05/2024 03/05/2023, , 02/02/2022, Additional history exists Mammogram 10/13/2024 10/14/2023, 08/07, 08/25/2022, Additional history exists Albumin/Creatinine Ratio 10/28/2024 024, 09/05/2021, 10/16/2016, Additional history exists HbA1c 11/09/2024 05/09/2024, 10/07, 07/05/2023, Additional history exists GFR 05/15/2025 05/15/2024, 0 06/2024, 04/24/2024, Additional history exists Colonoscopy 04/09/2026 04/09/2021, 04/2021, 01/15/2016 Colorectal Cancer Screening 04/09/2026 DXA Scan 05/16/2026 05/16/2024, 01/07, 02/03/2022, Additional history exists Lipid Panel 05/09/2029 05/09/2024, 06/07, 05/06/2022, Additional history exists DTap/Tdap Vaccines (3 - Td or Tdap) 09/26/2029 09/27/2019, 10/29/2011 *BISPHONATE OR OTHER ACCEPTABLE MEDICATION NEEDED FOR OSTEOPOROSIS (REFER TO SMARTSET #1146) Addressed 06/15/2017 (Not indicated) Overridden with the intention of not completing the topic Zoster Vaccines Completed 10/24/2018, 08/11/2018 RETIRED - COLONOSCOPY-EVERY 5 YRS AGES 18-100 Discontinued 04/09/2021, 04/09/2021, 01/15/2016 Hepatitis B Vaccine Completed 02/08/2023, Influenza Vaccine (FLU shot) Completed 11/09/2023, 11/21/2022, 12/02/2021, Additional history exists VITAMIN D LEVEL ONCE IN A LIFETIME-USE SMARTSET# 66579 Completed 05/09/2024, 10/29/2023, 07/05/2023, Additional history exists HIV Screening Discontinued HPV (Gardasil) Vaccine Aged Out No lo nger eligible based on patient's age to complete this topic MENINGOCOCCAL (MENACTRA/MENVEO) Aged Out No longer eligible based on patient's age to complete this topic Meningitis B Vaccine (Bexsero/Trumemba) Aged Out No longer eligible based on patient's age to complete this topic documented as of this encounter Medical Devices Not on filedocumented as of this encounter Visit Diagnoses Diagnosis Intestinal postoperative nonabsorption- Primary Other and unspecified postsurgical nonabsorption documented in this encounter Advance Directives * Full Code (Latest Code Status on File) Date Activated Date Inactivated Comments 07/17/2020 12:17 PM 07/19/2020 8:39 PM Question Answer Comments Discussion of Advance Directives occurred with: Not Discussed Does the patient have a Living Will? No Does the patient have Health Care Power of Attor murray? No * Full Code Date Activated Date Inactivated Comments 07/17/2020 7:07 AM 07/17/2020 12:17 PM This order reflects the patients wishes and were consensually agreed upon. Care Teams Top And Trim Worker Relationship Specialty Start Date End Date Aubrey Mcmullen MD [address] [facility] [place] [id number] PCP - General Family Medicine 03/25/21 documented as of this encounter
[2024-06-30] MEDS: ceFAZolin 3000MG 3,000 MG/72.5 ML BAG IV SCH (11:32)
[2024-06-30] MEDS: ROPIV 0.5% 246mg, Ketorolac 30mg, EPINEPHrine 0.5mg in NSS INFIL SCH (12:02)
[2024-06-30] MEDS: ALLERGY Noted to ORDERED Medication SCH (12:03)
[2024-06-30] MEDS: TRANEXAMIC ACID 1,000 MG **IV Intra-op IV SCH (12:41)
--- NOTE | 2024-06-30 12:51 | Operative Report ---
PG Post Operative Report Pre & Post Diagnosis Operation Date: 06/30/24 11:00 Pre-Op Diagnosis: Left Knee Osteoarthritis Post-Op Diagnosis: Left Knee Osteoarthritis I identified the patient and participated in the time-out.: Yes Procedure Operation Date: 06/30/24 11:00 Actual Procedures p Left Total Knee Arthroplasty(Left) - Noam Daniel DO Surgeon Noam Daniel DO Video Operator Germán Mancuso PA-C Estimated Blood Loss 200 Findings Consistent with Post-Op Diagnosis Specimens Left femoral and tibial bone Description of Procedure Implants used: I used a Meli Persona total knee arthroplasty system with a size 8 standard PS femur, E tibia, 31 oval patella, and a size 12 CPS polyethylene bearing. All components were cemented in place with Biomet cement. Zenia arrived [facility] for the above procedure. She was seen in the preoperative holding area and the operative extremity was identified and signed. She was given a preoperative antibiotic, TXA, a spinal anesthetic and an adductor nerve block. She was taken back to the operating room and laid on the table in supine position. She was given basic sedation. The operative knee was then prepped and draped in sterile fashion. A timeout was done, and the patient and the operative extremity was properly identified. A midline incision was made directly over the patella. Dissection was taken down to the extensor mechanism. A medial parapatellar arthrotomy was used. The medial retinaculum was released and the fat pad was mostly excised. The knee was flexed and the ACL, PCL, and meniscus were removed. A drill was sent down the center of the femoral canal followed by an intramedullary rita. Off that rita a distal femoral cutting block was placed. 9 mm was resected off the distal femur at 5 of valgus. A posterior referencing AP sizing guide was then placed on the distal femur. The femur measured to be a size 8. 2 drill holes were placed in 3 of external rotation. A 4-in-1 cutting block was then impacted into place. Anterior, posterior, and chamfer cuts were then made. The proximal tibia was then exposed. An external tibial alignment guide was placed. A tibial cut guide was then anchored in place and the proximal tibia was then resected. The posterior aspect of the knee was then opened up and any additional meniscus fragments and osteophytes were removed. The tibia measured to be a size E. The tibial plate was then placed in the appropriate rotation and the tibia was drilled and punched. Trial components were then placed. I used a size 12 CPS polyethylene insert. The knee was brought through a full range of motion and felt to be stable. The peg holes for the femoral component were then drilled. The patella was then everted and 9 mm was resected off the posterior aspect of the patella. The patella measured to be a size 31 oval. 3 peg holes were then drilled. A trial patella was placed. The knee was once again brought through a full range of motion and felt to be stable. Trial components were then removed. The surrounding soft tissues were injected with 100 cc of an orthopedic pain control cocktail. All components were then cemented into place with Biomet cement. The final polyethylene insert was then snapped into place. Once cement was dry the tourniquet was deflated. Hemostasis was obtained. A dilute betadyne lavage was then done for 3 minutes. The joint was then irrigated with normal saline solution. The medial parapatellar arthrotomy was then closed with #1 Vicryl suture. The skin was closed with 2-0 Vicryl, 3-0V lock suture, and selvin. A soft compressive dressing was placed. She was then transferred to a hospital bed and taken to the postanesthesia care unit in stable condition. She tolerated the procedure well. Germán Mancuso PA-C, was present for the entire procedure. He was critical for patient positioning, prepping, draping, retraction exposure, wound closure and application of sterile dressing. I attest to the content of the Intraoperative Record and any orders documented therein. Any exceptions are noted below.
--- NOTE | 2024-06-30 13:39 | XRay Report ---
XR knee LT 1 or 2V routine CLINICAL HISTORY: Surgical Post Op COMPARISON: 05/29/2020 FINDINGS: Left knee prosthesis shows no hardware complication. There is expected soft tissue gas. Sk in selvin are present. Stable anterior soft tissue calcification. IMPRESSION: Unremarkable postoperative exam. ACT 112: Negative or not required by law. Electronically signed by: Armand Izquierdo M.D. 06/30/2024 1:38 PM
[2024-06-30] MEDS ORDERED: KETOROLAC TROMETHAMINE 15 MG/ML VIAL IV SCH (15:08)
[2024-06-30] MEDS ORDERED: HYDROmorphone INJ 0.5 MG/0.5 ML SYR IV PRN (15:08)
[2024-06-30] MEDS ORDERED: NALOXONE HCL 0.4 MG/1 ML VIAL/CARP IV PRN (15:08)
[2024-06-30] MEDS ORDERED: METOCLOPRAMIDE HCL INJ 5 MG/ML 2 ML VIAL IV PRN (15:08)
[2024-06-30] MEDS ORDERED: bisacodyL 10 MG SUPP PR PRN (15:08)
[2024-06-30] MEDS ORDERED: PHARMACY GLYCEMIC MGMT CONSULT PRN (15:08)
[2024-06-30] MEDS ORDERED: MAGNESIUM HYDROXIDE SUSP 30 ML UDC PO PRN (15:08)
--- NOTE | 2024-06-30 15:44 | Anesthesiology Progress Note ---
Date of Service June 30, 2024 Anesthesia Post Procedure Vital Signs Vital Signs: Temp Pulse Resp BP Pulse Ox O2 Del Method O2 Flow Rate 06/30/24 15:21 97.7 F 58 L 18 129/69 95 Room Air 06/30/24 14:50 Room Air, CPAP 06/30/24 14:30 98.2 F 60 16 117/72 97 Oxymask 2 06/30/24 14:25 56 L 19 118/69 93 Oxymask 2 06/30/24 14:15 58 L 19 112/64 94 Oxymask 2 06/30/24 14:05 55 L 18 115/68 96 Oxymask 2 06/30/24 13:55 66 15 110/68 94 Room Air 0 06/30/24 13:45 58 L 16 115/82 92 Room Air 0 06/30/24 13:35 58 L 17 119/79 98 Oxymask 4 06/30/24 13:25 60 18 122/74 95 Oxymask 4 06/30/24 13:15 96.8 F L 69 18 125/71 96 Oxymask 6 06/30/24 09:16 98.6 F 53 L 18 131/75 99 Room Air Pain Intensity Left Knee: Pain Intensity: 6 Transfer of Care Handoff Completed per policy Notes Mental Status: alert / awake / arousable and participated in evaluation Patient Amnestic to Procedure: Yes Nausea / Vomiting: adequately controlled Pain: adequately controlled Airway Patency, RR, SpO2: stable & adequate BP & HR: stable & adequate Hydration State: stable & adequate Neuraxial Anesthesia: was administered and sensory block is resolving Anesthetic Complications: no major complications apparent and Pt Satisfied with anesthetic care
[2024-06-30] MEDS ORDERED: GLUCAGON FOR INJ 1 MG VIAL SQ PRN (16:00)
[2024-06-30] MEDS ORDERED: DEXTROSE 50% 50 ML SYRINGE IV PRN (16:00)
[2024-06-30] MEDS ORDERED: GLUCOSE 40% GEL 15 GM TUBE PO PRN (16:00)
[2024-06-30] MEDS ORDERED: GLUCOSE 10 TAB/TUBE PO PRN (16:00)
[2024-06-30] MEDS ORDERED: CARBOHYDRATES FOR HYPOGLYCEMIA PO PRN (16:00)
[2024-06-30] MEDS: oxyCODONE HCL IR 5 MG TAB (IMMEDIATE RELEASE) PO PRN (16:47)
[2024-06-30] MEDS: INSULIN ASPART PER UNIT CHARGE SC SCH (17:13)
[2024-06-30] MEDS: risperiDONE 2 MG TABLET PO SCH (21:30)
[2024-06-30] MEDS: DOCUSATE SODIUM 100 MG CAP PO SCH (21:31)
[2024-06-30] MEDS: ceFAZolin 2000MG 2,000 MG/15 ML SYR IV SCH (21:32)
[2024-06-30] MEDS: ASPIRIN 81 MG ECTAB PO SCH (21:32)
[2024-06-30] MEDS: ALPRAZolam 0.5 MG TABLET PO SCH (21:39)
[2024-06-30] MEDS: SENNA 8.6 MG TAB PO SCH (21:40)
--- NOTE | 2024-07-01 08:24 | Orthopedic Progress Note ---
Date of Service July 01, 2024 Assessment & Plan (1) Status post left knee replacement: Overall she is doing very well. She is having some pain in her left knee but it is controlled with the oxycodone. She will be seen by physical therapy today for ambulation and range of motion exercises. She is on aspirin for DVT prophylaxis. We will hold on discharge for today. Will keep her in the hospital today for pain control and therapy. The plan is to discharge her to home tomorrow. Fela Knutson was seen and examined at bedside this morning. Overall she is doing okay. She is having some pain in her left knee. She has been up and ambulating to the bathroom. She has no other complaints.. Review of Systems All systems reviewed & are unremarkable except as noted in HPI & below. Physical Exam On physical exam of the left knee, the dressing is clean and dry. Her leg is out full extension. She has active dorsiflexion plantarflexion of her left ankle.. Results & Data Results & Data Laboratory Results . Diagnostic Findings Postoperative x-rays of the left knee show the prosthesis to be in anatomic alignment without any evidence of fracture, dislocation, or loosening.. PG Care Time/CCT Total # of Minutes Spent Total Time Spent with Patient: Total time spent is greater than 50% in coordination of care (as documented) at patient's floor/unit and/or counseling patient: Coding Level of Care Code 76805 Post Operative Follow-Up Diagnoses Status post left knee replacement Z96.652
[2024-07-01] MEDS ORDERED: NON-FORMULARY MEDICATION (Multivitamin Tablet) PO SCH (09:00)
[2024-07-01] MEDS: FUROSEMIDE 20 MG TAB PO SCH (09:11)
[2024-07-01] MEDS: MONTELUKAST SODIUM 10 MG TABLET PO SCH (09:11)
[2024-07-01] MEDS: DULoxetine HCL 30 MG CAP PO SCH (09:11)
[2024-07-01] MEDS: PANTOprazole 40 MG TAB PO SCH (09:12)
[2024-07-01] MEDS: MULTIVITAMIN TAB PO SCH (09:12)
[2024-07-01] MEDS: METOPROLOL SUCC 25MG EXT REL TAB PO SCH (09:16)
[2024-07-01 09:58] LABS: Estimated Average Glucose 108 mg/dl; Hemoglobin A1C 5.4 % (4.5-5.6)
--- NOTE | 2024-07-01 12:15 | Pharmacy Report ---
Pharmacy Glycemic Short Note 2 - Date of Service July 01, 2024 - Glycemic Short BSG Results (Last 24 hours): 06/30/24 06/30/24 06/30/24 13:19 16:40 20:00 POC Glucose 141 H 171 H 137 H 07/01/24 07/01/24 07:48 11:35 POC Glucose 119 H 94 OUTPATIENT ANTIDIABETIC REGIMEN: * Ozempic 0.5mg SQ weekly * 5.4% 07/01/24 ASSESSMENT: * 58 YO F POD1 L TKA. Patient received 10mg dexamethasone in OR yesterday, required 7 units of NovoLog correctional and prandial insulin yesterday. * Blood sugar at goal this morning, no further steroids ordered, will change NovoLog to correctional insulin only. PLAN FOR INPATIENT GLYCEMIC CONTROL: * Hold outpatient diabetes medications * Basal insulin * None * Bolus insulin * NovoLog per scale ACHS or Q6hrs while NPO * Goal Range: Low 110 mg/dL - High 140 mg/dL * Correction Factor: 30 mg/dL/unit * Nutritional / Prandial insulin per carb ratio of 1 unit per -- grams CHO consumed
[2024-07-02 08:16] VITALS: RESP 16
--- NOTE | 2024-07-02 08:49 | Orthopedic Progress Note ---
Date of Service July 02, 2024 Assessment & Plan (1) Status post left knee replacement: Overall she is doing fairly well. Her pain in the left knee is well-controlled. She will be seen by physical therapy today for ambulation and range of motion exercises. She is on aspirin for DVT prophylaxis. She can be discharged to home later today. She will follow-up with orthopedics in 2 weeks.. Fela Knutson was seen and examined at bedside this morning. Overall she is doing very well. She is not having much pain in the left knee today. She worked well yesterday with physical therapy has no complaints.. Review of Systems All systems reviewed & are unremarkable except as noted in HPI & below. Physical Exam Physical exam the left knee, the dressing is clean and dry. Her SHAMEKA hose stockings in place. She is sitting in a chair at bedside.. Results & Data Results & Data Laboratory Results . PG Care Time/CCT Total # of Minutes Spent Total Time Spent with Patient: Total time spent is greater than 50% in coordination of care (as documented) at patient's floor/unit and/or counseling patient: Coding Level of Care Code 45310 Post Operative Follow-Up Diagnoses Status post left knee replacement Z96.652
--- NOTE | 2024-07-02 08:50 | Discharge Summary ---
Date of Service July 02, 2024 Admission HPI (Per Admitting) Zenia is a pleasant 58-year-old female who has been dealing with chronic increasing left knee pain. X-rays and clinical exam have been diagnostic for advanced arthritis of her left knee. After failing conservative treatment, she has elected to proceed with a left total knee arthroplasty. Admission Exam (Per Admitting) On physical exam of the left knee, she has a slight varus deformity. She has t enderness to palpation of the distal medial femoral condyle and over the medial joint line.. Principal Diagnosis Same as "Discharge Diagnosis" noted below under Discharge Instructions. Discharge Exam Physical exam the left knee, the dressing is clean and dry. Her SHAMEKA hose stockings in place. She is sitting in a chair at bedside.. Discharge Data Procedures Performed Operation Date: 06/30/24 11:00 Actual Procedures p Left Total Knee Arthroplasty(Left) - Noam Daniel DO Ordered Studies 06/30/24 05:00 US - OR guided needle placemen Routine Hospital Course (1) Status post left knee replacement: On June 30, 2024 Zenia arrived at [facility] and underwent a left knee replacement without complication. She had a spinal anesthetic. Postoperatively, she was started on aspirin for DVT prophylaxis and transferred to the general orthopedic floors. Her hospital course was uneventful. Postop day #1, her vital signs were stable and her pain was well-controlled. She was able to participate well with physical therapy doing ambulation and range of motion exercises. On postop day #2 she continues to do fairly well. She worked well with physical therapy. She was then discharged to home. She will follow- up with orthopedics in 2 weeks. PG Care Time/CCT Total # of Minutes Spent Total Time Spent with Patient: Total time spent is greater than 50% in coordination of care (as documented) at patient's floor/unit and/or counseling patient: Discharge Plan Discharge Items Patient Disposition: Home - Self-Care Reason For Visit: Arthritis Knee Left Discharge Diagnosis: Left knee replacement Activity: Per Instructions section Non-emergency contact: Surgeon Call non-emergency contact if: your wound has increased redness and your wound has increased drainage Follow-up/Referrals: Aubrey Mcmullen MD [Primary Care Provider] - Diet: Regular Addtl Attending Provider Instructions: Activity and Therapy Recommendations: * If you are using [facility] then therapy will be provided at your home until they feel you have accomplished all of your goals. * If you are using [facility] then Physical Therapy will be provided until they feel you are ready to start Outpatient Physical Therapy. * If you are not using home therapy then Outpatient Physical Therapy should start about 3-5 days from your day of surgery. Therapy will last about 6-10 weeks * It is important not to put a pillow under your knee when you are relaxing or sleeping. It is just as important to make sure you are getting your knee perfectly straight as it is to regain your knee bend. * You were shown a series of exercises in the hospital. Do these exercises three times each day including the exercises you were shown in physical therapy. * Get up and walk several times each day. For the first four weeks, try not to stand or walk for more than one hour at a time. If you do stand or walk for more than one hour, you will not hurt anything, but your leg will likely swell. * As you feel comfortable, you may change from the walker or crutches to a cane and then to independent walking. Medications: * Narcotic You will likely be sent home from the hospital with a prescription for the narcotic pain medication that worked best throughout your stay. * Cefadroxil -take the antibiotic twice a day for 10 days to help prevent infection. * Aspirin Most patients will be required to take Aspirin 81mg twice a day for 6 weeks after surgery. This is obtained [id number] and a prescription is not necessary. * Other medications may be prescribed for specific circumstances. If you have any questions, please call the office at . * Resume previous home medications unless otherwise instructed TEDs/Elastic Stockings: The white elastic stockings help limit swelling and prevent blood clots from forming in your legs.~ The more you wear them, the more they work. Wear them for 2 weeks. Dressing Care: The dressing can be changed after physical therapy on postop day #1. Daily dry dressing changes for a few days, especially if the incision is still draining some. If the incision is not draining then you may leave the selvin open to air. If there is a little bit of drainage or if the selvin are getting stuck on your clothing then cover the incision with a dry dressing. The selvin will be removed at your 2 week follow-up appointment. Showering: You may shower 5 days from the day of surgery as long as the incision is no longer draining. You may shower with the selvin exposed. Let soapy water run over the selvin and pat them dry. Do not scrub or soak the incision. Diet: You may resume your previous diet. Things To Watch For: * Drainage from the incision site that occurs more than one week after your surgery. * Increased redness at the incision site. * Fever above 102 degrees Fahrenheit. * Unusual chest pain or shortness of breath. * Call [facility] at with any of the above problems Follow-Up Visit: Follow-up with Dr. Daniel's office 2-3 weeks after your day of surgery. We will remove your selvin and answer any questions. If you have any additional questions or concerns, Dr Daniel is usually in the office at the same time and will be available An appointment was probably scheduled when you signed-up for surgery in the office. If you have any questions call Office Instructions: More detailed instructions as well as Frequently Asked Questions were provided in a folder by our office when you signed-up for surgery. Please review these instructions when you get home. If you have any further questions or concerns, please feel free to call the off ice at [phone] Pending Studies at Discharge: No Stand-Alone Forms: My [facility], Smoking Cessation Medications and DC Order Prescriptions: New cefadroxil 500 mg capsule 500 mg PO BID 10 Days Qty: 20 0RF oxycodone 5 mg tablet 5 mg PO Q6H PRN (Reason: pain) Qty: 30 0RF Continued fluticasone propion-salmeterol [Advair Diskus] 250-50 mcg/dose Blister With Device 1 inh INHALATION BID PRN (Reason: upper respiratory infection) ipratropium-albuterol 0.5 mg-3 mg(2.5 mg base)/3 mL Solution For Nebulization 3 ml INHALATION QID PRN (Reason: Shortness Of Breath) alprazolam [Xanax] 1 mg Tablet 1 mg PO BID fexofenadine 180 mg Tablet 180 mg PO QAM PRN (Reason: Allergy Symptoms) pantoprazole [Protonix] 40 mg Tablet,Delayed Release (Dr/Ec) 40 mg PO QAM montelukast 10 mg Tablet 10 mg PO QAM furosemide 20 mg Tablet 20 mg PO QAM albuterol sulfate 90 mcg/actuation Hfa Aerosol Inhaler 2 puff INHALATION Q4 PRN (Reason: Shortness Of Breath) anakinra 100 mg/0.67 mL Syringe 100 mg SUBCUT QAM duloxetine 30 mg Capsule,Delayed Release(Dr/Ec) 90 mg PO QAM Patient Comments: in the winter i take 90's Rx Instructions: TAKE WITH 60MG= 90MG DAILY IN THE AM. cholecalciferol (vitamin D3) [Vitamin D3] 2,000 unit Tablet 2,000 unit PO QAM risperidone [Risperdal] 1 mg Tablet 2 mg PO HS calcium carbonate [Calcium 600] 600 mg calcium (1,500 mg) Tablet 600 mg PO TID multivitamin [Multiple Vitamin] Tablet 1 tab PO QAM tramadol 50 mg tablet 50 mg PO BID PRN (Reason: pain, moderate) Ozempic 2 mg/dose (8 mg/3 mL) Pen Injector 0.5 mg SUBCUT WK Rx Instructions: TAKE THIS MEDICNE EVERY WEDNESDAY cyanocobalamin (vitamin B-12) 1,000 mcg/mL Solution 1,000 mcg IM .Q3M Rx Instructions: TAKE THIS MED EVERY THREE MONTHS valacyclovir 1 gram Tablet 2,000 mg PO DAILY PRN (Reason: Cold Sores) metoprolol succinate 25 mg Tablet Extended Release 24 Hr 25 mg PO QAM magnesium 200 mg Tablet 400 mg PO QAM psyllium husk [Metamucil] 0.4 gram Capsule 0.4 g PO DAILY Rx Instructions: 4 cap daily Changed aspirin [Robb Low Dose Aspirin] 81 mg Tablet,Delayed Release (Dr/Ec) 81 mg PO BID 42 Days Qty: 0 0RF Discharge Orders: Discharge Order (Routine); Ordered 07/02/24 Ordered By: Noam Daniel Admission Data Admit Date/Time: 06/30/24 13:18 Attending Provider: Noam Daniel Admit Provider: Noam Daniel Primary Care Provider: Aubrey Mcmullen Other Providers: Celio Monahan [facility]
[2024-07-02 11:40] VITALS: BP 112/70; PULSE 71; TEMP 99.1; O2SAT 93
== END 2024-07-02 12:19 | disposition home or self-care (01) ==
LOC: 3N 08:41 → ASU 08:41
DX: Z79.899 Other long term (current) drug therapy; I10 Essential (primary) hypertension; K21.9 Gastro-esophageal reflux disease without esophagitis; Z88.8 Allergy status to other drugs, medicaments and biological substances; E66.01 Morbid (severe) obesity due to excess calories; K75.81 Nonalcoholic steatohepatitis (NASH); G47.33 Obstructive sleep apnea (adult) (pediatric); Z79.82 Long term (current) use of aspirin; J45.909 Unspecified asthma, uncomplicated; M17.12 Unilateral primary osteoarthritis, left knee; Z91.040 Latex allergy status; Z87.891 Personal history of nicotine dependence; Z91.012 Allergy to eggs; Z68.43 Body mass index [BMI] 50.0-59.9, adult